=== PATIENT | female | born 1980 | race American Indian/Alaskan Native ===

== ENCOUNTER 2017-08-16 13:53 | Inpatient (IN) | payer MEDICAID ==
[2017-08-16 16:46] LABS: BASO % 0.8 % (0.0-2.0); EOS % 0.5 % (0.0-4.0); LYMPH # 2.8 K/uL (1.0-4.3); LYMPH % 50.6 % (20.0-40.0); MEAN CELL VOLUME 91.6 fl (81.0-99.0); MEAN CORPUSCULAR HEMOGLOBIN 29.7 pg (27.0-31.0); MEAN CORPUSCULAR HGB CONC 32.4 g/dL (33.0-37.0); MEAN PLATELET VOLUME 8.8 fl (7.2-11.7); MONO # 0.5 K/uL (0.0-0.8); MONO % 9.5 % (0.0-10.0); NEUT # 2.2 K/uL (1.8-7.0); NEUT % 38.6 % (50.0-75.0); NRBC % 0.1 % (0.0-0.0); RBC 5.39 Mil/uL (3.80-5.20); RED CELL DISTRIBUTION WIDTH 15.5 % (11.5-14.5); WHITE BLOOD COUNT 5.6 K/uL (4.8-10.8)
[2017-08-16 17:04] LABS: ALBUMIN 3.8 g/dL (3.5-5.0); ALT/SGPT 32 U/L (9-52); AST/SGOT 24 U/L (14-36); BLOOD UREA NITROGEN 10 mg/dl (7-17); CALCIUM 9.5 mg/dL (8.4-10.2); GFR AFRICAN-AMERICAN > 60; GFR NON-AFRICAN AMERICAN > 60
--- NOTE | 2017-08-16 17:28 | ED PDOC ---
Lower Extremity Pain/Injury Time Seen by Provider: 08/16/17 14:20 Chief Complaint (Nursing): Weakness/Neurological Deficit Chief Complaint (Provider): Lower extremity weakness History Per: Patient History/Exam Limitations: no limitations Onset/Duration Of Symptoms: Days (x4 months since April) Current Symptoms Are (Timing): Still Present Additional Complaint(s): Rubi Armenta is a 36 year old female, with no significant past medical history, who presents to the emergency department complaining of a worsening weakness to the lower extremities and inability to ambulate onset for x4 months since April. Patient was sent here by her PMD for admission and arrangements for rehab center. Patient reports she was evaluated at both [place] and [facility] for the same complaint. Patient states she had MRIs of entire spine and head as well as CTs of head and spine that were unremarkable; she also reports that there were no findings in her blood work as well. She states insurance won't approve her rehab placement until a diagnosis is made. LMP: 05/21/2017. She denies any other medical complaints. PMD: Dr. Garcia Past Medical History Reviewed: Historical Data, Nursing Documentation, Vital Signs Vital Signs: Last Vital Signs Temp 98.0 F 08/16/17 14:00 Pulse 106 H 08/16/17 14:00 Resp 16 08/16/17 14:00 BP 155/105 H 08/16/17 14:00 Pulse Ox 97 08/16/17 14:00 - Medical History PMH: No Chronic Diseases Denies: Chronic Kidney Disease - Surgical History Surgical History: No Surg Hx - Family History Family History: States: Unknown Family Hx - Social History Current smoker - smoking cessation education provided: No Alcohol: Social Drugs: Denies - Home Medications Home Medications: Ambulatory Orders Medication Instructions Recorded No Known Home Med 08/16/17 - Allergies Allergies/Adverse Reactions: Allergies Allergy/AdvReac Type Severity Reaction Status Date / Time amoxicillin Allergy SHORTNESS Verified 05/02/17 19:47 OF BREATH Review of Systems ROS Statement: Except As Marked, All Systems Reviewed And Found Negative Neurological: Positive for: Weakness (lower extremities) Physical Exam - Reviewed Nursing Documentation Reviewed: Yes Vital Signs Reviewed: Yes - Physical Exam Comments: GENERAL APPEARANCE: Patient is awake, alert, oriented x 3, in no acute distress. SKIN: Warm, dry; (-) cyanosis. EYES: (-) conjunctival pallor, (-) scleral icterus. ENMT: Mucous membranes moist. NECK: Supple, FROM (-) tenderness, (-) stiffness, (-) lymphadenopathy. CHEST AND RESPIRATORY: CTA b/l; (-) rales, (-) rhonchi, (-) wheezes; breath sounds equal bilaterally. HEART AND CARDIOVASCULAR: (-) irregularity; (-) murmur, (-) gallop. ABDOMEN AND GI: Soft; (-) distention. Bowel sounds active x4; (-) tenderness. ( -) guarding, (-) rebound, (-) palpable masses, (-) CVA tenderness. BACK: (+) b/l paralumbar tenderness, (+) mild spasm, (-) direct bony tenderness , (-) deformity, (-) midline tenderness. EXTREMITIES: 5/5 strength of lower extremities. Full ROM of b/l lower extremities; (-) tenderness, (-) effusion, (-) deformity, (-) edema, (+) distal pulses. NEURO AND PSYCH: Mental status as above; (-) focal findings. - Laboratory Results Result Diagrams: 08/16/17 16:39 08/16/17 16:39 Urine POC: Negative Urine dip results: Positive for: Leukocyte Esterase (trace), Bilirubin (small). Negative for: Blood, Nitrate, Glucose - ECG ECG Rhythm: Positive for: Sinus Rhythm Interpretation Of ECG: No ST elevation, no ectopy, QTc 452. Rate: 90 O2 Sat by Pulse Oximetry: 97 (RA) Pulse Ox Interpretation: Normal Medical Decision Making Medical Decision Making: Initial Impression: worsening weakness, inability to ambulate Initial Plan: --EKG --CMP --Urine drug screen -- test --CBC w/ differential --Chest portable [RAD] --Chest two views (PA/LAT) [RAD] --Zofran ODT 8 mg PO --Blood culture --Urinalysis --Reevaluation 1699 -Spoke with Dr. Garcia, who states she wants the patient to be admitted. Patient is pending an outpatient muscle biopsy and EMG study, however reporting worsening symptoms which prompted admission. -Upreg negative. -UDip reviewed. U/A ordered. -Labs reviewed and grossly unremarkable. -EKG reviewed. CXR reviewed, radiology report follows Monotype Mechanic : Daron Acosta MD Report Date : 08/16/2017 17:51:52 HISTORY: admission COMPARISON: No prior. FINDINGS: LUNGS: No active pulmonary disease. PLEURA: No significant pleural effusion identified, no pneumothorax apparent. CARDIOVASCULAR: Normal. OSSEOUS STRUCTURES: No significant abnormalities. VISUALIZED UPPER ABDOMEN: Normal. OTHER FINDINGS: None. IMPRESSION: No active disease. 18:00 -Spoke with Dr. Alberto who is agreeable for admission. Arrangements made for observation to med-surg. Repeat HR: 66. Repeat BP: 113/76. VSS. -Diagnostic results d/w the patient in great detail. Diagnosis of weakness, ataxia d/w the patient. Based on history, exam and diagnostic results, plan will be for inpatient admission / observation. Scribe Attestation: Documented by Fran Reid, acting as a scribe for Petty Goodson PA-C Provider Scribe Attestation: All medical record entries made by the Scribe were at my direction and personally dictated by me. I have reviewed the chart and agree that the record accurately reflects my personal performance of the history, physical exam, medical decision making, and the department course for this patient. I have also personally directed, reviewed, and agree with the discharge instructions and disposition. Disposition - Clinical Impression Clinical Impression: Weakness of both lower extremities, Back pain, acute - Patient ED Disposition Is Patient to be Admitted: Yes - Disposition Disposition Time: 16:08 Condition: STABLE - Pt Status Changed To: Hospital Disposition Of: Inpatient - Admit Certification Admit to Inpatient:: After my assessment, the patient will require hospitalization for at least two midnights. This is because of the severity of symptoms shown, intensity of services needed, and/or the medical risk in this patient being treated as an outpatient. - POA Present On Arrival: None Results - Lab Results Lab Results: 08/16/17 08/16/17 16:39 16:39 WBC 5.6 RBC 5.39 H Hgb 16.0 Hct 49.4 H MCV 91.6 MCH 29.7 MCHC 32.4 L RDW 15.5 H Plt Count 288 MPV 8.8 Neut % (Auto) 38.6 L Lymph % (Auto) 50.6 H Mineral % (Auto) 9.5 Eos % (Auto) 0.5 Baso % (Auto) 0.8 Neut # (Auto) 2.2 Lymph # (Auto) 2.8 Mineral # (Auto) 0.5 Eos # (Auto) 0.0 Baso # (Auto) 0.0 Sodium 141 Potassium 3.7 Chloride 99 Carbon Dioxide 26 Anion Gap 20 BUN 10 Creatinine 0.5 L Est GFR ( Amer) > 60 Est GFR (Non-Af Amer) > 60 Random Glucose 96 Calcium 9.5 Total Bilirubin 0.5 AST 24 ALT 32 Alkaline Phosphatase 66 Total Protein 7.6 Albumin 3.8 Globulin 3.8 Albumin/Globulin Ratio 1.0
--- NOTE | 2017-08-16 17:53 | RAD ---
HISTORY: admission COMPARISON: No prior. FINDINGS: LUNGS: No active pulmonary disease. PLEURA: No significant pleural effusion identified, no pneumothorax apparent. CARDIOVASCULAR: Normal. OSSEOUS STRUCTURES: No significant abnormalities. VISUALIZED UPPER ABDOMEN: Normal. OTHER FINDINGS: None. IMPRESSION: No active disease.
[2017-08-16] MEDS: Sodium Chloride 0.9% 1,000 ML IV SCH (20:00)
[2017-08-17] MEDS: Enoxaparin 40 mg Syringe SC SCH (08:58)
[2017-08-17] MEDS: Sodium Chloride 0.9% 1,000 ML IV SCH (15:25)
--- NOTE | 2017-08-17 18:13 | CARD ---
APPROVED REPORT EKG Measurement Heart [id number] MS [id number] <Conclusion> Normal sinus rhythm Normal ECG
--- NOTE | 2017-08-17 21:45 | CP.PCM.HP ---
History of Present Illness - History of Present Illness History of Present Illness: CC: Unable to Ambulate and Transfer History of Preset Illness: A 36yoF who has been C/O Unable to walk and pain to the upper and lower extremities. Patient wa worked up extensively in [facility], and [facility] since but unable to ambulate. Patient was sent by her PMD to the ER for further work up and placement to Acute Rehab. Denies Fever, numbness, Tingling. Neurology evaluated the patient at [facility] and [facility], and was seen by psych at [facility]. She states had a short period of PT/OT at [facility] and was discharged Home. Present on Admission - Present on Admission Any Indicators Present on Admission: No Review of Systems - Review of Systems All systems: reviewed and no additional remarkable complaints except Past Patient History - Infectious Disease Hx of Infectious Diseases: None - Past Medical History & Family History Past Medical History?: Yes Past Family History: Reviewed and not pertinent () - Past Social History Alcohol: Social Drugs: Denies - CARDIAC Hx Cardiac Disorders: No - PULMONARY Hx Respiratory Disorders: No - NEUROLOGICAL Hx Neurological Disorder: No Other/Comment: "nerve pain last year" - RENAL Hx Chronic Kidney Disease: No - ENDOCRINE/METABOLIC Hx Endocrine Disorders: No - HEMATOLOGICAL/ONCOLOGICAL Hx Blood Disorders: No - INTEGUMENTARY Hx Dermatological Problems: No - MUSCULOSKELETAL/RHEUMATOLOGICAL Hx Musculoskeletal Disorders: Yes Hx Back Pain: Yes Hx Falls: Yes Hx Spinal Stenosis: Yes - GASTROINTESTINAL Hx Gastrointestinal Disorders: No - GENITOURINARY/GYNECOLOGICAL Hx Genitourinary Disorders: No - PSYCHIATRIC Hx Psychophysiologic Disorder: No Hx Substance Use: No - SURGICAL HISTORY Hx Surgeries: No - ANESTHESIA Hx Anesthesia: No Meds Allergies/Adverse Reactions: Allergies Allergy/AdvReac Type Severity Reaction Status Date / Time amoxicillin Allergy SHORTNESS Verified 05/02/17 19:47 OF BREATH Physical Exam - Constitutional Appears: Well, No Acute Distress - Head Exam Head Exam: ATRAUMATIC, NORMAL INSPECTION, NORMOCEPHALIC - Eye Exam Eye Exam: EOMI, Normal appearance, PERRL Pupil Exam: NORMAL ACCOMODATION, PERRL - ENT Exam ENT Exam: Mucous Membranes Moist, Normal Exam - Neck Exam Neck exam: Positive for: Full Rom, Normal Inspection - Respiratory Exam Respiratory Exam: Clear to Auscultation Bilateral, NORMAL BREATHING PATTERN - Cardiovascular Exam Cardiovascular Exam: REGULAR RHYTHM, +S1, +S2 - GI/Abdominal Exam GI & Abdominal Exam: Normal Bowel Sounds, Soft. absent: Tenderness - Rectal Exam Rectal Exam: NORMAL INSPECTION - Extremities Exam Extremities exam: Positive for: full ROM, normal capillary refill, normal inspection, pedal pulses present. Negative for: joint swelling, pedal edema, tenderness - Back Exam Back exam: NORMAL INSPECTION - Neurological Exam Neurological exam: Alert, CN II-XII Intact, Oriented x3, Reflexes Normal Additional comments: Finger to Nose was abnormal to the left. Wong to Heel test were norml B/L LE. - Psychiatric Exam Psychiatric exam: Normal Affect, Normal Mood - Skin Skin Exam: Dry, Intact, Normal Color, Warm Results - Vital Signs Recent Vital Signs: Last Vital Signs Temp 98.2 F 08/17/17 17:00 Pulse 93 H 08/17/17 17:00 Resp 18 08/17/17 17:00 BP 105/73 08/17/17 17:00 Pulse Ox 100 08/17/17 17:00 - Labs Result Diagrams: 08/16/17 16:39 08/16/17 16:39 Labs: Laboratory Results - last 24 hr 08/17/17 12:30 Total Creatine Kinase 237 H TSH 3rd Generation 0.66 - EKG Data EKG shows normal: Sinus rhythm, Intervals, QRS complexes, ST-T waves Rate: Normal - Imaging and Cardiology MRI - head Additional comment: with/Without Contrast: IMPRESSION: Limited motion degraded study. No evidence of acute intracranial hemorrhage or infarct. No enhancing parenchymal nor extra-axial masses. No evidence of unusual meningeal enhancement. Assessment & Plan (1) Unable to ambulate Assessment and Plan: ?Etiolog Vs Somatization Neurology Consulted Aldolase and CPK Level Physical and Occupational Therapy Evaluation and treatment Will do LP if Neurologist Agree DVT Prphylaxis Pain Medication PRN SW Status: Acute Priority: Medium
[2017-08-18] MEDS ORDERED: Gadodiamide 287 MG/ML VIAL (15ML) IV ONE (07:22)
[2017-08-18] MEDS: Enoxaparin 40 mg Syringe SC SCH (10:12)
--- NOTE | 2017-08-18 12:08 | MRI ---
PROCEDURE: MRI of the brain 08/18/2017 HISTORY: Rule out stroke COMPARISON: No prior TECHNIQUE: Multiplanar, multisequence MR images of the brain were obtained with and without intravenous contrast enhancement. 20 cc Omniscan contrast material injected for this examination. Note that this examination is limited by motion artifact. FINDINGS: HEMORRHAGE: No acute parenchymal, subarachnoid or extra-axial hemorrhage. No evidence hemosiderin deposition identified on gradient echo weighted sequence DWI: No evidence of an acute or early subacute infarction cantu seen on diffusion imaging. BRAIN PARENCHYMA: No enhancing parenchymal nor extra-axial masses or collections seen on this noncontrast study. No evidence of unusual meningeal enhancement. . No evidence of a significant chronic microvascular ischemic disease. ENHANCEMENT: No abnormal intracranial enhancement as above. VENTRICLES: No obstructive hydrocephalus. CRANIUM: No acute calvarial abnormality so far as can be seen. ORBITS: Orbits and contents unremarkable. PARANASAL SINUSES/MASTOIDS: The frontal sinuses are underpneumatized/ hypoplastic. Remaining visualized paranasal sinuses well-developed and currently well-aerated. No fluid levels seen to suggest acute sinusitis. No significant mucoperiosteal inflammatory changes. VASCULAR SYSTEM: Visualized major vascular flow voids at skull base patent. OTHER FINDINGS: None . IMPRESSION: Limited motion degraded study. No evidence of acute intracranial hemorrhage or infarct. No enhancing parenchymal nor extra-axial masses. No evidence of unusual meningeal enhancement.
[2017-08-18 18:17] LABS: ALDOLASE 8.9 U/L (<=8.1)
--- NOTE | 2017-08-18 22:16 | CP.PCM.PN ---
Subjective - Date & Time of Evaluation Date of Evaluation: 08/18/17 Time of Evaluation: 16:35 Objective - Vital Signs/Intake and Output Vital Signs (last 24 hours): Temp Pulse Resp BP Pulse Ox 98 F 94 H 20 109/73 100 08/18/17 17:00 08/18/17 17:00 08/18/17 17:00 08/18/17 17:00 08/18/17 17:00 - Medications Medications: Current Medications Enoxaparin Sodium (Lovenox) 40 mg SC DAILY ALVIN PRN Reason: Protocol Last Admin: 08/18/17 10:12 Dose: 40 mg Ketorolac Tromethamine (Toradol) 15 mg IVP Q6 PRN PRN Reason: Pain, moderate (4-7) Last Admin: 08/17/17 23:57 Dose: 15 mg Ondansetron HCl (Zofran Inj) 4 mg IVP Q6 PRN PRN Reason: Nausea/Vomiting - Labs Labs: 08/16/17 16:39 08/16/17 16:39
[2017-08-19] MEDS: Enoxaparin 40 mg Syringe SC SCH (08:27)
--- NOTE | 2017-08-19 17:28 | CP.PCM.PN ---
Subjective - Date & Time of Evaluation Date of Evaluation: 08/19/17 Time of Evaluation: 11:15 Objective - Vital Signs/Intake and Output Vital Signs (last 24 hours): Temp Pulse Resp BP Pulse Ox 97.8 F 87 20 105/73 99 08/19/17 15:39 08/19/17 15:39 08/19/17 15:39 08/19/17 15:39 08/19/17 15:39 - Medications Medications: Current Medications Enoxaparin Sodium (Lovenox) 40 mg SC DAILY ALVIN PRN Reason: Protocol Last Admin: 08/19/17 08:27 Dose: 40 mg Ketorolac Tromethamine (Toradol) 15 mg IVP Q6 PRN PRN Reason: Pain, moderate (4-7) Last Admin: 08/18/17 23:41 Dose: 15 mg Ondansetron HCl (Zofran Inj) 4 mg IVP Q6 PRN PRN Reason: Nausea/Vomiting - Labs Labs: 08/16/17 16:39 08/16/17 16:39
--- NOTE | 2017-08-20 09:02 | CP.PCM.PCO ---
Assessment/Plan - Assessment/Plan Assessment (Free Text): Spoke to Dr. Lindsey, neurologist who saw pt, states she did not request lumbar puncture and that the patient does not need a lumbar puncture. Also states the patient does not have any neurologic symptoms and that the patient is cleared from neurology stand point. Suggesting a psychiatric eval as well. Discussed with Dr. Alberto, LP order d/c'd, psych consult called.
[2017-08-20 09:33] LABS: INR 1.1 (0.9-1.2); PARTIAL THROMBOPLASTIN TIME 35.1 Seconds (25.6-37.1)
[2017-08-20] MEDS: Enoxaparin 40 mg Syringe SC SCH (09:49)
--- NOTE | 2017-08-20 14:53 | CP.PCM.CON ---
History of Present Illness - History of Present Illness History of Present Illness: A 36yoF who has been C/O Unable to walk and pain to the upper and lower extremities. Patient wa worked [place] extensively [place] [facility], and [facility] since but unable to ambulate. Patient was sent by her PMD to the ER for further work up and placement to Acute Rehab. pt after neurological work up was medically cleared,psychiatry consult requested to rule out conversion disorder pt on evaluation, calm cooperative, denied any previous history of psychiatric treatment or follow up, denied any current symptoms of depression, no reported changes in sleep or appetite, denied manic or psychotic symptoms, denied substance abuse pt reported only feeling sad because of her limited ability to move her lower extremities. pt denied any current suicidal or homicidal ideations Past Patient History - Infectious Disease Hx of Infectious Diseases: None - Past Medical History & Family History Past Medical History?: Yes Past Family History: Reviewed and not pertinent () - Past Social History Alcohol: Social Drugs: Denies - CARDIAC Hx Cardiac Disorders: No - PULMONARY Hx Respiratory Disorders: No - NEUROLOGICAL Hx Neurological Disorder: No Other/Comment: "nerve pain last year" - RENAL Hx Chronic Kidney Disease: No - ENDOCRINE/METABOLIC Hx Endocrine Disorders: No - HEMATOLOGICAL/ONCOLOGICAL Hx Blood Disorders: No - INTEGUMENTARY Hx Dermatological Problems: No - MUSCULOSKELETAL/RHEUMATOLOGICAL Hx Musculoskeletal Disorders: Yes Hx Back Pain: Yes Hx Falls: Yes Hx Spinal Stenosis: Yes - GASTROINTESTINAL Hx Gastrointestinal Disorders: No - GENITOURINARY/GYNECOLOGICAL Hx Genitourinary Disorders: No - PSYCHIATRIC Hx Psychophysiologic Disorder: No Hx Substance Use: No - SURGICAL HISTORY Hx Surgeries: No - ANESTHESIA Hx Anesthesia: No Meds Allergies/Adverse Reactions: Allergies Allergy/AdvReac Type Severity Reaction Status Date / Time amoxicillin Allergy SHORTNESS Verified 05/02/17 19:47 OF BREATH - Medications Medications: Current Medications Acetaminophen (Tylenol 325mg Tab) 650 mg PO Q6 PRN PRN Reason: Pain, Mild (1-3) Last Admin: 08/20/17 11:30 Dose: 650 mg Acetaminophen/Codeine Phosphate (Tylenol/Codeine 300 Mg/30 Mg) 1 tab PO Q6 PRN PRN Reason: Pain, moderate (4-7) Enoxaparin Sodium (Lovenox) 40 mg SC DAILY ALVIN PRN Reason: Protocol Last Admin: 08/20/17 09:49 Dose: 40 mg Ondansetron HCl (Zofran Odt) 4 mg PO Q6 PRN PRN Reason: Nausea/Vomiting Physical Exam - Psychiatric Exam Additional comments: pt seen in bed, calm cooperative good eye contact, speech normal though form coherent , denied any current perceptual disturbances, non elicited alert awake oriented x3, fair insight and judgment Results - Vital Signs Recent Vital Signs: Last Vital Signs Temp 98.2 F 08/20/17 08:03 Pulse 106 H 08/20/17 13:30 Resp 18 08/20/17 08:03 BP 122/84 08/20/17 08:03 Pulse Ox 100 08/20/17 13:30 - Labs Result Diagrams: 08/16/17 16:39 08/16/17 16:39 Labs: Laboratory Results - last 24 hr 08/20/17 08:45 PT 12.0 INR 1.1 APTT 35.1 Assessment & Plan - Assessment and Plan (Free Text) Assessment: no psychiatric diagnosis or condition on axis I Plan: pt at current metal status not danger to self or others, no psychiatric symptoms or signs elicited pt psychiatricaly cleared for discharge upon medical clearence
[2017-08-20] MEDS ORDERED: Gadodiamide 287 MG/ML VIAL (15ML) IV ONE (16:04)
--- NOTE | 2017-08-20 20:19 | MRI ---
EXAM: MR Thoracic Spine Without and With Intravenous Contrast EXAM DATE/TIME: 08/20/2017 12:49 PM CLINICAL HISTORY: 36 years old, female; Signs and symptoms; Other: Ataxia TECHNIQUE: Magnetic resonance images of the thoracic spine without and with intravenous contrast in multiple planes. CONTRAST: 20 mL of OMNISCAN administered intravenously. COMPARISON: No relevant prior studies available. FINDINGS: LIMITATIONS: Mild streak/motion artifact. 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 No evidence of significant vertebral subluxation. No evidence of acute vertebral compression fractures. MARROW: No evidence of significant vertebral marrow signal abnormality. DISCS/SPINAL CANAL/NEURAL FORAMINA: No evidence of significant spinal canal stenosis. Intervertebral disc heights and signal appear preserved. SPINAL CORD: No evidence of significant signal abnormality in the spinal cord. No abnormal enhancement. SOFT TISSUES: No acute abnormality identified. GALLBLADDER AND BILE DUCTS: Gallstones incidentally noted . IMPRESSION: - No evidence of spinal canal stenosis or other significant abnormality. - See above for remaining findings.
--- NOTE | 2017-08-20 20:32 | MRI ---
EXAM: MR Lumbar Spine Without and With Intravenous Contrast EXAM DATE/TIME: 08/20/2017 12:49 PM CLINICAL HISTORY: 36 years old, female; Signs and symptoms; Other: Ataxia TECHNIQUE: Magnetic resonance images of the lumbar spine without and with intravenous contrast in multiple planes. CONTRAST: 20 mL of OMNISCAN administered intravenously. COMPARISON: No relevant prior studies available. FINDINGS: LIMITATIONS: Mild streak/motion artifact. VERTEBRAE: No evidence of acute vertebral compression fractures. No evidence of significant vertebral subluxation. MARROW: No evidence of significant vertebral marrow signal abnormality. SPINAL CORD: No evidence of significant signal abnormality in the conus medullaris, which terminates at the L1 level. No abnormal enhancement. SOFT TISSUES: Small amount of edema in the subcutaneous fat posteriorly, which could represent dependent edema. DISCS/SPINAL CANAL/NEURAL FORAMINA: L1-L2: Mild facet joint degenerative changes. No evidence of significant spinal canal stenosis. L2-L3: Mild circumferential disc bulge. Moderate facet joint degenerative changes. No evidence of significant spinal canal stenosis. L3-L4: Mild circumferential disc bulge. Moderate facet joint degenerative changes. No evidence of significant spinal canal stenosis. L4-L5: Moderate facet joint degenerative changes. There is associated mild bilateral neural foraminal narrowing. No evidence of significant spinal canal stenosis. L5-S1: Moderate facet joint degenerative changes. There is associated mild bilateral neural foraminal narrowing. No evidence of significant spinal canal stenosis. IMPRESSION: - No evidence of significant spinal canal stenosis. - Multilevel facet joint degenerative changes, causing mild neural foraminal narrowing. - See above for remaining findings.
--- NOTE | 2017-08-20 20:55 | MRI ---
EXAM: MR Cervical Spine Without and With Intravenous Contrast EXAM DATE/TIME: 08/20/2017 12:49 PM CLINICAL HISTORY: 36 years old, female; Signs and symptoms; Other: Ataxia TECHNIQUE: Magnetic resonance images of the cervical spine without and with intravenous contrast in multiple planes. CONTRAST: 20 mL of OMNISCAN administered intravenously. COMPARISON: No relevant prior studies available. FINDINGS: VERTEBRAE: No evidence of acute vertebral compression fractures. No evidence of significant vertebral subluxation. MARROW: No evidence of significant vertebral marrow signal abnormality. SPINAL CORD: No evidence of significant signal abnormality in the spinal cord. No abnormal enhancement. SOFT TISSUES: No acute abnormality identified DISCS/SPINAL CANAL/NEURAL FORAMINA: C2-C3: Unremarkable. No stenosis. C3-C4: Focal central disc bulge. This effaces the ventral thecal sac. No evidence of significant spinal canal stenosis. C4-C5: Small posterior disc bulge. This effaces the ventral thecal sac, and causes mild spinal canal stenosis. C5-C6: Suspect a focal disc herniation, located in the midline . This contacts the spinal cord anteriorly and indents it. It is causing spinal canal stenosis. C6-C7: Unremarkable. C7-T1: Unremarkable. IMPRESSION: - Findings suspicious for a focal disc herniation at C5-6, which contacts the ventral spinal cord and causes spinal canal stenosis. - See above for remaining findings.
--- NOTE | 2017-08-20 22:52 | CP.PCM.PN ---
Subjective - Date & Time of Evaluation Date of Evaluation: 08/20/17 Time of Evaluation: 13:30 Objective - Vital Signs/Intake and Output Vital Signs (last 24 hours): Temp Pulse Resp BP Pulse Ox 97.6 F 98 H 20 115/80 96 08/20/17 15:41 08/20/17 15:41 08/20/17 15:41 08/20/17 15:41 08/20/17 15:41 - Medications Medications: Current Medications Acetaminophen (Tylenol 325mg Tab) 650 mg PO Q6 PRN PRN Reason: Pain, Mild (1-3) Last Admin: 08/20/17 11:30 Dose: 650 mg Acetaminophen/Codeine Phosphate (Tylenol/Codeine 300 Mg/30 Mg) 1 tab PO Q6 PRN PRN Reason: Pain, moderate (4-7) Enoxaparin Sodium (Lovenox) 40 mg SC DAILY ALVIN PRN Reason: Protocol Last Admin: 08/20/17 09:49 Dose: 40 mg Ondansetron HCl (Zofran Odt) 4 mg PO Q6 PRN PRN Reason: Nausea/Vomiting - Labs Labs: 08/16/17 16:39 08/16/17 16:39 PT 12.0 Seconds (9.8-13.1) 08/20/17 08:45 INR 1.1 (0.9-1.2) 08/20/17 08:45 APTT 35.1 Seconds (25.6-37.1) 08/20/17 08:45 Assessment and Plan (1) Unable to ambulate Status: Acute
[2017-08-21] MEDS: Acetaminophen-Codeine 300/30 mg Tab PO PRN (04:26)
[2017-08-21] MEDS: Enoxaparin 40 mg Syringe SC SCH (08:30)
[2017-08-21 13:30] LABS: MEAN CORPUSCULAR HEMOGLOBIN 29.8 pg (27.0-31.0); MEAN CORPUSCULAR HGB CONC 32.7 g/dL (33.0-37.0); RBC 4.58 Mil/uL (3.80-5.20); RED CELL DISTRIBUTION WIDTH 15.4 % (11.5-14.5); WHITE BLOOD COUNT 4.8 K/uL (4.8-10.8)
[2017-08-21 13:37] LABS: BLOOD UREA NITROGEN 8 mg/dl (7-17); CALCIUM 8.9 mg/dL (8.4-10.2); GFR AFRICAN-AMERICAN > 60; GFR NON-AFRICAN AMERICAN > 60
[2017-08-21 13:39] LABS: HEMOGLOBIN 13.6 g/dL (12.0-16.0)
[2017-08-21] MEDS ORDERED: Potassium Chloride 20 mEq ER Tab PO ONE (15:05)
--- NOTE | 2017-08-21 16:01 | CP.PCM.CON ---
History of Present Illness - History of Present Illness History of Present Illness: Neurology Consult Note: Ms. Armenta is a 36-year-old woman who is currently admitted for generalized weakness that has been ongoing since 2016 and was exacerbated in April since she had a fall with injury to the back. She has been worked up before, but did not have cervical spine imaging. During this admission, an MRI of the cervical spine was done and showed herniation of C5/6 with indentation of the spinal cord. Neurology was consulted to assist with the management and care. Review of Systems - Review of Systems All systems: reviewed and no additional remarkable complaints except Past Patient History - Infectious Disease Hx of Infectious Diseases: None - Past Medical History & Family History Past Medical History?: Yes Past Family History: Reviewed and not pertinent () - Past Social History Alcohol: Social Drugs: Denies - CARDIAC Hx Cardiac Disorders: No - PULMONARY Hx Respiratory Disorders: No - NEUROLOGICAL Hx Neurological Disorder: No Other/Comment: "nerve pain last year" - RENAL Hx Chronic Kidney Disease: No - ENDOCRINE/METABOLIC Hx Endocrine Disorders: No - HEMATOLOGICAL/ONCOLOGICAL Hx Blood Disorders: No - INTEGUMENTARY Hx Dermatological Problems: No - MUSCULOSKELETAL/RHEUMATOLOGICAL Hx Musculoskeletal Disorders: Yes Hx Back Pain: Yes Hx Falls: Yes Hx Spinal Stenosis: Yes - GASTROINTESTINAL Hx Gastrointestinal Disorders: No - GENITOURINARY/GYNECOLOGICAL Hx Genitourinary Disorders: No - PSYCHIATRIC Hx Psychophysiologic Disorder: No Hx Substance Use: No - SURGICAL HISTORY Hx Surgeries: No - ANESTHESIA Hx Anesthesia: No Meds Allergies/Adverse Reactions: Allergies Allergy/AdvReac Type Severity Reaction Status Date / Time amoxicillin Allergy SHORTNESS Verified 05/02/17 19:47 OF BREATH - Medications Medications: Current Medications Acetaminophen (Tylenol 325mg Tab) 650 mg PO Q6 PRN PRN Reason: Pain, Mild (1-3) Last Admin: 08/20/17 11:30 Dose: 650 mg Acetaminophen/Codeine Phosphate (Tylenol/Codeine 300 Mg/30 Mg) 1 tab PO Q6 PRN PRN Reason: Pain, moderate (4-7) Last Admin: 08/21/17 04:26 Dose: 1 tab Enoxaparin Sodium (Lovenox) 40 mg SC DAILY ALVIN PRN Reason: Protocol Last Admin: 08/21/17 08:30 Dose: 40 mg Ondansetron HCl (Zofran Odt) 4 mg PO Q6 PRN PRN Reason: Nausea/Vomiting Last Admin: 08/21/17 15:51 Dose: 4 mg Physical Exam - Constitutional Appears: Well - Head Exam Head Exam: ATRAUMATIC, NORMAL INSPECTION, NORMOCEPHALIC - Eye Exam Eye Exam: EOMI, Normal appearance, PERRL - ENT Exam ENT Exam: Mucous Membranes Moist, Normal Exam - Neck Exam Neck exam: Positive for: Normal Inspection - Respiratory Exam Respiratory Exam: Clear to Auscultation Bilateral, NORMAL BREATHING PATTERN - Cardiovascular Exam Cardiovascular Exam: REGULAR RHYTHM - Rectal Exam Rectal Exam: Deferred - Neurological Exam Neurological exam: Abnormal Gait, Alert, CN II-XII Intact, Oriented x3, Reflexes Normal Additional comments: Right upper extremity is weaker than left with 4/5 strength proximally and 3/5 strength distally. Left upper extremity is 4/5 proximally and distally. Weaker on extension than flexion. C5/6 reflexes were brisk. Bilateral hip flexors are weak. Decreased position sense, vibration sense and light touch to both lower extremities. Requires a walker for ambulation and needs assistance to stand from a seated position. Results - Vital Signs Recent Vital Signs: Last Vital Signs Temp 97.4 F L 08/21/17 08:05 Pulse 101 H 08/21/17 08:05 Resp 19 08/21/17 08:05 BP 108/73 08/21/17 08:05 Pulse Ox 98 08/21/17 08:05 - Labs Result Diagrams: 08/21/17 13:22 08/21/17 13:22 Labs: Laboratory Results - last 24 hr 08/21/17 08/21/17 13:22 13:22 WBC 4.8 RBC 4.58 Hgb 13.6 D Hct 41.7 MCV 91.0 MCH 29.8 MCHC 32.7 L RDW 15.4 H Plt Count 232 Sodium 141 Potassium 3.4 L Chloride 102 Carbon Dioxide 27 Anion Gap 15 BUN 8 Creatinine 0.5 L Est GFR ( Amer) > 60 Est GFR (Non-Af Amer) > 60 Random Glucose 105 Calcium 8.9 Vitamin B12 349 Assessment & Plan (1) Cervical disc herniation Assessment and Plan: This is likely the cause of the patient's progressive weakness. There does not appear to be a significant amount of edema, therefor steroids may not be useful at this time. I recommend spinal/neurosurgical evaluation for possible treatment. Neurology will follow-up to manage pain and paresthesias, but further weakness may be prevented with surgery if this is decided by spinal surgeon. Thank you. Status: Acute Priority: High
--- NOTE | 2017-08-21 16:36 | CP.PCM.CON ---
History of Present Illness - History of Present Illness History of Present Illness: SPINE CONSULT Pt seen and examined. Full consult dictated. Would continue PT for now as pt clinically better than she was in April and appearance of HNP not as large. Past Patient History - Infectious Disease Hx of Infectious Diseases: None - Past Medical History & Family History Past Medical History?: Yes Past Family History: Reviewed and not pertinent () - Past Social History Alcohol: Social Drugs: Denies - CARDIAC Hx Cardiac Disorders: No - PULMONARY Hx Respiratory Disorders: No - NEUROLOGICAL Hx Neurological Disorder: No Other/Comment: "nerve pain last year" - RENAL Hx Chronic Kidney Disease: No - ENDOCRINE/METABOLIC Hx Endocrine Disorders: No - HEMATOLOGICAL/ONCOLOGICAL Hx Blood Disorders: No - INTEGUMENTARY Hx Dermatological Problems: No - MUSCULOSKELETAL/RHEUMATOLOGICAL Hx Musculoskeletal Disorders: Yes Hx Back Pain: Yes Hx Falls: Yes Hx Spinal Stenosis: Yes - GASTROINTESTINAL Hx Gastrointestinal Disorders: No - GENITOURINARY/GYNECOLOGICAL Hx Genitourinary Disorders: No - PSYCHIATRIC Hx Psychophysiologic Disorder: No Hx Substance Use: No - SURGICAL HISTORY Hx Surgeries: No - ANESTHESIA Hx Anesthesia: No Meds Allergies/Adverse Reactions: Allergies Allergy/AdvReac Type Severity Reaction Status Date / Time amoxicillin Allergy SHORTNESS Verified 05/02/17 19:47 OF BREATH - Medications Medications: Current Medications Acetaminophen (Tylenol 325mg Tab) 650 mg PO Q6 PRN PRN Reason: Pain, Mild (1-3) Last Admin: 08/20/17 11:30 Dose: 650 mg Acetaminophen/Codeine Phosphate (Tylenol/Codeine 300 Mg/30 Mg) 1 tab PO Q6 PRN PRN Reason: Pain, moderate (4-7) Last Admin: 08/21/17 04:26 Dose: 1 tab Enoxaparin Sodium (Lovenox) 40 mg SC DAILY ALVIN PRN Reason: Protocol Last Admin: 08/21/17 08:30 Dose: 40 mg Ondansetron HCl (Zofran Odt) 4 mg PO Q6 PRN PRN Reason: Nausea/Vomiting Last Admin: 08/21/17 15:51 Dose: 4 mg Results - Vital Signs Recent Vital Signs: Last Vital Signs Temp 98.8 F 08/21/17 16:14 Pulse 100 H 08/21/17 16:14 Resp 20 08/21/17 16:14 BP 123/86 08/21/17 16:14 Pulse Ox 97 08/21/17 16:14 - Labs Result Diagrams: 08/21/17 13:22 08/21/17 13:22 Labs: Laboratory Results - last 24 hr 08/21/17 08/21/17 13:22 13:22 WBC 4.8 RBC 4.58 Hgb 13.6 D Hct 41.7 MCV 91.0 MCH 29.8 MCHC 32.7 L RDW 15.4 H Plt Count 232 Sodium 141 Potassium 3.4 L Chloride 102 Carbon Dioxide 27 Anion Gap 15 BUN 8 Creatinine 0.5 L Est GFR ( Amer) > 60 Est GFR (Non-Af Amer) > 60 Random Glucose 105 Calcium 8.9 Vitamin B12 349
--- NOTE | 2017-08-21 18:55 | CP.PCM.PN ---
Subjective - Date & Time of Evaluation Date of Evaluation: 08/21/17 Time of Evaluation: 14:55 Objective - Vital Signs/Intake and Output Vital Signs (last 24 hours): Temp Pulse Resp BP Pulse Ox 98.8 F 100 H 20 123/86 97 08/21/17 16:14 08/21/17 16:14 08/21/17 16:14 08/21/17 16:14 08/21/17 16:14 - Medications Medications: Current Medications Acetaminophen (Tylenol 325mg Tab) 650 mg PO Q6 PRN PRN Reason: Pain, Mild (1-3) Last Admin: 08/20/17 11:30 Dose: 650 mg Acetaminophen/Codeine Phosphate (Tylenol/Codeine 300 Mg/30 Mg) 1 tab PO Q6 PRN PRN Reason: Pain, moderate (4-7) Last Admin: 08/21/17 04:26 Dose: 1 tab Enoxaparin Sodium (Lovenox) 40 mg SC DAILY ALVIN PRN Reason: Protocol Last Admin: 08/21/17 08:30 Dose: 40 mg Ondansetron HCl (Zofran Odt) 4 mg PO Q6 PRN PRN Reason: Nausea/Vomiting Last Admin: 08/21/17 15:51 Dose: 4 mg - Labs Labs: 08/21/17 13:22 08/21/17 13:22 PT 12.0 Seconds (9.8-13.1) 08/20/17 08:45 INR 1.1 (0.9-1.2) 08/20/17 08:45 APTT 35.1 Seconds (25.6-37.1) 08/20/17 08:45 Assessment and Plan (1) Unable to ambulate Status: Acute
[2017-08-22] MEDS: Acetaminophen-Codeine 300/30 mg Tab PO PRN (01:55)
[2017-08-22] MEDS: Enoxaparin 40 mg Syringe SC SCH (08:59)
[2017-08-22 10:37] LABS: BLOOD UREA NITROGEN 6 mg/dl (7-17); CALCIUM 8.9 mg/dL (8.4-10.2); GFR AFRICAN-AMERICAN > 60; GFR NON-AFRICAN AMERICAN > 60
--- NOTE | 2017-08-22 22:15 | CP.PCM.PN ---
Subjective - Date & Time of Evaluation Date of Evaluation: 08/22/17 Time of Evaluation: 16:20 Objective - Vital Signs/Intake and Output Vital Signs (last 24 hours): Temp Pulse Resp BP Pulse Ox 98.4 F 92 H 20 117/84 97 08/22/17 16:42 08/22/17 16:42 08/22/17 16:42 08/22/17 16:42 08/22/17 16:42 - Medications Medications: Current Medications Acetaminophen (Tylenol 325mg Tab) 650 mg PO Q6 PRN PRN Reason: Pain, Mild (1-3) Last Admin: 08/20/17 11:30 Dose: 650 mg Acetaminophen/Codeine Phosphate (Tylenol/Codeine 300 Mg/30 Mg) 1 tab PO Q6 PRN PRN Reason: Pain, moderate (4-7) Last Admin: 08/22/17 01:55 Dose: 1 tab Enoxaparin Sodium (Lovenox) 40 mg SC DAILY ALVIN PRN Reason: Protocol Last Admin: 08/22/17 08:59 Dose: 40 mg Ondansetron HCl (Zofran Odt) 4 mg PO Q6 PRN PRN Reason: Nausea/Vomiting Last Admin: 08/21/17 15:51 Dose: 4 mg - Labs Labs: 08/21/17 13:22 08/22/17 10:08 PT 12.0 Seconds (9.8-13.1) 08/20/17 08:45 INR 1.1 (0.9-1.2) 08/20/17 08:45 APTT 35.1 Seconds (25.6-37.1) 08/20/17 08:45 Assessment and Plan (1) Unable to ambulate Status: Acute
[2017-08-23] MEDS: Acetaminophen-Codeine 300/30 mg Tab PO PRN (00:59)
--- NOTE | 2017-08-23 08:24 | CON ---
DATE: 08/21/2017 REASON FOR CONSULTATION: Difficulty walking. HISTORY OF PRESENT ILLNESS: The patient is a 36-year-old young lady who states that she had longstanding issues with neck and back pain as far back in 2016. She stated at that time, she had some outpatient physical therapy and things seem to get better. She was told she had some bone spurs and arthritis in her neck and her lower back. She states things were never perfect, but she was getting along until she had a fall on giving of last year and that really seemed to set things off. She was seen at [facility] and reportedly had a workup done which according to her did not really show anything, so she was transferred to a rehab center. Evidently because of her difficulty walking, she was transferred from the rehab, place directly to [facility]. She underwent a cervical spine MRI and was seen by Neurology at that time. Evidently a question of MS was raised, but Ms. Armenta states she was told she did not have that. There was a mention in the progress notes about doing a spinal tap, but she states she never had that done. She states at that time her legs were jumping "all over the place" as she describes it and she could not really control them. Things are definitely better now than they were 3.5 months ago. No loss of bowel or bladder control. She states she has some pain and numbness in her hands and arms as well. She denies any significant neck pain. PAST MEDICAL HISTORY: She denies any significant past medical history. MEDICATIONS: She is not taking any prescription medications. She is on Lovenox while she has been here. ALLERGIES: SHE IS ALLERGIC TO AMOXICILLIN. PAST SURGICAL HISTORY: She denies any past surgical history. REVIEW OF SYSTEMS: As documented in the chart. PHYSICAL EXAMINATION: NEUROLOGIC: She has a fairly full range of motion of her cervical spine with no complaints. She can laterally rotate at least 45 close to 60 degrees to each side. She moves both upper extremities fully and actively. Her strength seems to be at 5/5 in all groups test in left arm and about 4/5 on the right arm. No Nilesh's noted. Weak showcase maker strength bilaterally. Distal pulses are intact. No obvious hyperreflexia. Sensation is intact to light touch throughout. No straight leg raising noted in the lower extremities. Her sensation again is intact to light touch throughout, although she states that it is not the same as it was before she had difficulty walking. She has good motor strength throughout. Babinski shows toes are downgoing. No clonus is present. Distal pulses are fair. She has loss of position sense of her great toes bilaterally. LABORATORY DATA: She had an MRI done in [facility] on 05/06/2017 or 05/08/2017, which showed primarily herniated disk at C5-6 with indentation of spinal cord. She had another MRI done here yesterday and comparing the two, I believe the herniation is not a significant as it was back in April. I will contact radiology, so that they can actually do a comparison on their report. No obvious cord edema or any other signal abnormalities noted. IMPRESSION AND PLAN: Herniated disk at C5-6. Perhaps that her fall in March, she sustained a transient injury to the spinal cord and now clinically things are quieting down. This is basically by her history in terms of how she could not walk at all back in April and how her legs were having apparent spasms and perhaps clonus on their own at that time, which is not present now. If she does clinically seem to be improving on her own, I would continue having her seen by physical therapy and progressively mobilize her as they can. Certainly if she plateaus or starts to worsen, then they may be an indication to go ahead surgically and decompress things. The loss of position sense is more posterior column, which does not fit at all with the rest of her exam, so again I think if she is showing signs of improving on her own, I would continue conservative care and not kamara to address this surgically. Thank you for allowing me to participate in the care of your patient. Agus Pimentel MD [facility]
[2017-08-23] MEDS: Enoxaparin 40 mg Syringe SC SCH (08:57)
--- NOTE | 2017-08-23 13:32 | CP.PCM.PN ---
Subjective - Date & Time of Evaluation Date of Evaluation: 08/23/17 Time of Evaluation: 13:29 - Subjective Subjective: Ms. Armenta was seen and examined today at bedside. 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 There were no new symptoms. There were no new events overnight. The patient was seen by Dr. Pimentel and there was a determination that her symptoms are likely due to the cervical spinal cord involvement. Acute rehab was recommended since there may be improvement in function without surgery at this time. Objective - Vital Signs/Intake and Output Vital Signs (last 24 hours): Temp Pulse Resp BP Pulse Ox 97.4 F L 97 H 22 102/67 95 08/23/17 08:19 08/23/17 08:19 08/23/17 08:19 08/23/17 08:19 08/23/17 08:19 - Medications Medications: Current Medications Acetaminophen (Tylenol 325mg Tab) 650 mg PO Q6 PRN PRN Reason: Pain, Mild (1-3) Last Admin: 08/20/17 11:30 Dose: 650 mg Acetaminophen/Codeine Phosphate (Tylenol/Codeine 300 Mg/30 Mg) 1 tab PO Q6 PRN PRN Reason: Pain, moderate (4-7) Last Admin: 08/23/17 00:59 Dose: 1 tab Enoxaparin Sodium (Lovenox) 40 mg SC DAILY ALVIN PRN Reason: Protocol Last Admin: 08/23/17 08:57 Dose: 40 mg Ondansetron HCl (Zofran Odt) 4 mg PO Q6 PRN PRN Reason: Nausea/Vomiting Last Admin: 08/21/17 15:51 Dose: 4 mg - Labs Labs: 08/21/17 13:22 08/22/17 10:08 PT 12.0 Seconds (9.8-13.1) 08/20/17 08:45 INR 1.1 (0.9-1.2) 08/20/17 08:45 APTT 35.1 Seconds (25.6-37.1) 08/20/17 08:45 - Neurological Exam Additional comments: Neurologically unchanged compared with previous examination. Assessment and Plan (1) Cervical disc herniation Assessment & Plan: I agree with Dr. Pimentel and recommend acute rehab considering the patient's underlying pathology may improve with physical therapy. Status: Acute
--- NOTE | 2017-08-23 21:51 | CP.PCM.PN ---
Subjective - Date & Time of Evaluation Date of Evaluation: 08/23/17 Time of Evaluation: 11:20 Objective - Vital Signs/Intake and Output Vital Signs (last 24 hours): Temp Pulse Resp BP Pulse Ox 98.4 F 101 H 20 123/88 95 08/23/17 16:38 08/23/17 16:38 08/23/17 16:38 08/23/17 16:38 08/23/17 16:38 - Medications Medications: Current Medications Acetaminophen (Tylenol 325mg Tab) 650 mg PO Q6 PRN PRN Reason: Pain, Mild (1-3) Last Admin: 08/20/17 11:30 Dose: 650 mg Acetaminophen/Codeine Phosphate (Tylenol/Codeine 300 Mg/30 Mg) 1 tab PO Q6 PRN PRN Reason: Pain, moderate (4-7) Last Admin: 08/23/17 00:59 Dose: 1 tab Enoxaparin Sodium (Lovenox) 40 mg SC DAILY ALVIN PRN Reason: Protocol Last Admin: 08/23/17 08:57 Dose: 40 mg Ondansetron HCl (Zofran Odt) 4 mg PO Q6 PRN PRN Reason: Nausea/Vomiting Last Admin: 08/21/17 15:51 Dose: 4 mg - Labs Labs: 08/21/17 13:22 08/22/17 10:08 PT 12.0 Seconds (9.8-13.1) 08/20/17 08:45 INR 1.1 (0.9-1.2) 08/20/17 08:45 APTT 35.1 Seconds (25.6-37.1) 08/20/17 08:45 Assessment and Plan (1) Unable to ambulate Status: Acute
[2017-08-24] MEDS: Acetaminophen-Codeine 300/30 mg Tab PO PRN (00:53)
[2017-08-24] MEDS: Enoxaparin 40 mg Syringe SC SCH (09:04)
[2017-08-24 16:34] VITALS: BP 121/79; PULSE 109; RESP 20; TEMP 98.5; O2SAT 96
--- NOTE | 2017-08-24 23:50 | CP.PCM.DIS ---
Provider - Provider Date of Admission: 08/19/17 14:04 Attending physician: Cj Alberto MD Time Spent in preparation of Discharge (in minutes): 25 Diagnosis - Discharge Diagnosis (1) Unable to ambulate Status: Acute Priority: Medium Hospital Course - Lab Results Lab Results: Micro Results 08/16/17 16:28 Blood Blood Culture - Final NO GROWTH AFTER 5 DAYS Most Recent Lab Values WBC 4.8 K/uL (4.8-10.8) 08/21/17 13:22 RBC 4.58 Mil/uL (3.80-5.20) 08/21/17 13:22 Hgb 13.6 g/dL (12.0-16.0) D 08/21/17 13:22 Hct 41.7 % (34.0-47.0) 08/21/17 13:22 MCV 91.0 fl (81.0-99.0) 08/21/17 13:22 MCH 29.8 pg (27.0-31.0) 08/21/17 13:22 MCHC 32.7 g/dL (33.0-37.0) L 08/21/17 13:22 RDW 15.4 % (11.5-14.5) H 08/21/17 13:22 Plt Count 232 K/uL (130-400) 08/21/17 13:22 MPV 8.8 fl (7.2-11.7) 08/16/17 16:39 Neut % (Auto) 38.6 % (50.0-75.0) L 08/16/17 16:39 Lymph % (Auto) 50.6 % (20.0-40.0) H 08/16/17 16:39 [place] % (Auto) 9.5 % (0.0-10.0) 08/16/17 16:39 Eos % (Auto) 0.5 % (0.0-4.0) 08/16/17 16:39 Baso % (Auto) 0.8 % (0.0-2.0) 08/16/17 16:39 Neut # (Auto) 2.2 K/uL (1.8-7.0) 08/16/17 16:39 Lymph # (Auto) 2.8 K/uL (1.0-4.3) 08/16/17 16:39 [place] # (Auto) 0.5 K/uL (0.0-0.8) 08/16/17 16:39 Eos # (Auto) 0.0 K/uL (0.0-0.7) 08/16/17 16:39 Baso # (Auto) 0.0 K/uL (0.0-0.2) 08/16/17 16:39 PT 12.0 Seconds (9.8-13.1) 08/20/17 08:45 INR 1.1 (0.9-1.2) 08/20/17 08:45 APTT 35.1 Seconds (25.6-37.1) 08/20/17 08:45 Sodium 141 mmol/l (132-148) 08/22/17 10:08 Potassium 3.6 MMOL/L (3.6-5.0) 08/22/17 10:08 Chloride 103 mmol/L (98-107) 08/22/17 10:08 Carbon Dioxide 26 mmol/L (22-30) 08/22/17 10:08 Anion Gap 16 (10-20) 08/22/17 10:08 BUN 6 mg/dl (7-17) L 08/22/17 10:08 Creatinine 0.5 mg/dl (0.7-1.2) L 08/22/17 10:08 Est GFR ( Amer) > 60 08/22/17 10:08 Est GFR (Non-Af Amer) > 60 08/22/17 10:08 Random Glucose 80 mg/dL (65-105) 08/22/17 10:08 Calcium 8.9 mg/dL (8.4-10.2) 08/22/17 10:08 Total Bilirubin 0.5 mg/dl (0.2-1.3) 08/16/17 16:39 AST 24 U/L (14-36) 08/16/17 16:39 ALT 32 U/L (9-52) 08/16/17 16:39 Alkaline Phosphatase 66 U/L (38-126) 08/16/17 16:39 Total Creatine Kinase 237 U/L (30-135) H 08/17/17 12:30 Total Protein 7.6 G/DL (6.3-8.2) 08/16/17 16:39 Albumin 3.8 g/dL (3.5-5.0) 08/16/17 16:39 Globulin 3.8 gm/dL (2.2-3.9) 08/16/17 16:39 Albumin/Globulin Ratio 1.0 (1.0-2.1) 08/16/17 16:39 Aldolase 8.9 U/L (<=8.1) H 08/17/17 12:30 Vitamin B12 349 pg/mL (239-931) 08/21/17 13:22 TSH 3rd Generation 0.66 mIU/ML (0.46-4.68) 08/17/17 12:30 RPR Nonreactive (NONREACTIVE) 08/21/17 13:22 Discharge Exam - Head Exam Head Exam: ATRAUMATIC, NORMAL INSPECTION, NORMOCEPHALIC Discharge Plan - Follow Up Plan Condition: STABLE Disposition: REHAB FACILITY/REHAB UNIT Instructions: Generalized Weakness (DC) Referrals: Cj Alberto MD [Staff Provider] -
== END 2017-08-24 18:36 | DRG 243 ==
LOC: H.ER 13:53 → H.ERHOLD 18:08 → H.MEDSURG1 22:25 → OBSVTOIN 08-19 14:04
PROVIDERS: ADMIT Internal Medicine; ATTEND Internal Medicine
DX: M50.222 Other cervical disc displacement at C5-C6 level (principal); M47.898 Other spondylosis, sacral and sacrococcygeal region; R53.1 Weakness; R26.2 Difficulty in walking, not elsewhere classified; Z91.81 History of falling; Z88.0 Allergy status to penicillin

== ENCOUNTER 2017-08-24 16:15 | Inpatient (IN) | payer MEDICAID ==
[2017-08-24 19:57] VITALS: BMI 38.9
[2017-08-24] MEDS ORDERED: Acetaminophen-Codeine 300/30 mg Tab PO PRN (21:06)
[2017-08-25] MEDS: Enoxaparin 40 mg Syringe SC SCH (09:00)
--- NOTE | 2017-08-25 12:18 | CP.PCM.HP ---
Past Patient History - Infectious Disease Hx of Infectious Diseases: None - Past Medical History & Family History Past Medical History?: Yes - Past Social History Smoking Status: Never Smoked - CARDIAC Hx Cardiac Disorders: No - PULMONARY Hx Respiratory Disorders: No - NEUROLOGICAL Hx Neurological Disorder: No Other/Comment: "nerve pain last year" - RENAL Hx Chronic Kidney Disease: No - ENDOCRINE/METABOLIC Hx Endocrine Disorders: No - HEMATOLOGICAL/ONCOLOGICAL Hx Blood Disorders: No - INTEGUMENTARY Hx Dermatological Problems: No - MUSCULOSKELETAL/RHEUMATOLOGICAL Hx Back Pain: Yes Hx Falls: Yes Hx Herniated Disk: Yes Hx Spinal Stenosis: Yes - GASTROINTESTINAL Hx Gastrointestinal Disorders: No - GENITOURINARY/GYNECOLOGICAL Hx Genitourinary Disorders: No - PSYCHIATRIC Hx Substance Use: No - SURGICAL HISTORY Hx Surgeries: No - ANESTHESIA Hx Anesthesia: No Meds Allergies/Adverse Reactions: Allergies Allergy/AdvReac Type Severity Reaction Status Date / Time amoxicillin Allergy SHORTNESS Verified 08/24/17 20:52 OF BREATH Results - Vital Signs Recent Vital Signs: Last Vital Signs Temp 98.2 F 08/25/17 07:37 Pulse 97 H 08/25/17 07:37 Resp 20 08/25/17 07:37 BP 121/70 08/25/17 07:37 Pulse Ox 100 08/25/17 07:37
--- NOTE | 2017-08-25 12:41 | CP.PCM.CON ---
History of Present Illness - History of Present Illness History of Present Illness: Ms. Armenta is a 36-year-old woman who is currently admitted for acute rehab due to generalized weakness that has been ongoing since 2016 and was exacerbated in April since she had a fall with injury to the back. I was consulted to evaluate her at [facility]. During that admission an MRI of the cervical spine was done and showed herniation of C5/6 with indentation of the spinal cord. It was slightly improved compared to an MRI done several months ago, but was still concerning. Neurosurgery evaluated the patient and did not recommend surgery at this time since the patient was improving somewhat and the underlying neuropathology was also improving. Acute rehab was recommended and follow up imaging to evaluate at a later date. Review of Systems - Review of Systems All systems: reviewed and no additional remarkable complaints except Past Patient History - Infectious Disease Hx of Infectious Diseases: None - Past Medical History & Family History Past Medical History?: Yes - Past Social History Smoking Status: Never Smoked - CARDIAC Hx Cardiac Disorders: No - PULMONARY Hx Respiratory Disorders: No - NEUROLOGICAL Hx Neurological Disorder: No Other/Comment: "nerve pain last year" - RENAL Hx Chronic Kidney Disease: No - ENDOCRINE/METABOLIC Hx Endocrine Disorders: No - HEMATOLOGICAL/ONCOLOGICAL Hx Blood Disorders: No - INTEGUMENTARY Hx Dermatological Problems: No - MUSCULOSKELETAL/RHEUMATOLOGICAL Hx Back Pain: Yes Hx Falls: Yes Hx Herniated Disk: Yes Hx Spinal Stenosis: Yes - GASTROINTESTINAL Hx Gastrointestinal Disorders: No - GENITOURINARY/GYNECOLOGICAL Hx Genitourinary Disorders: No - PSYCHIATRIC Hx Substance Use: No - SURGICAL HISTORY Hx Surgeries: No - ANESTHESIA Hx Anesthesia: No Meds Allergies/Adverse Reactions: Allergies Allergy/AdvReac Type Severity Reaction Status Date / Time amoxicillin Allergy SHORTNESS Verified 08/24/17 20:52 OF BREATH - Medications Medications: Current Medications Acetaminophen (Tylenol 325mg Tab) 650 mg PO Q6 PRN PRN Reason: Pain, Mild (1-3) Acetaminophen/Codeine Phosphate (Tylenol/Codeine 300 Mg/30 Mg) 1 tab PO Q6H PRN PRN Reason: Pain, moderate (4-7) Last Admin: 08/25/17 02:57 Dose: 1 tab Enoxaparin Sodium (Lovenox) 40 mg SC DAILY [facility] PRN Reason: Protocol Last Admin: 08/25/17 09:00 Dose: 40 mg Ondansetron HCl (Zofran Odt) 4 mg PO Q6 PRN PRN Reason: Nausea/Vomiting Physical Exam - Constitutional Appears: Well - Head Exam Head Exam: ATRAUMATIC, NORMAL INSPECTION, NORMOCEPHALIC - Eye Exam Eye Exam: EOMI, Normal appearance, PERRL - ENT Exam ENT Exam: Mucous Membranes Moist, Normal Exam - Respiratory Exam Respiratory Exam: Clear to Auscultation Bilateral, NORMAL BREATHING PATTERN - Cardiovascular Exam Cardiovascular Exam: REGULAR RHYTHM - GI/Abdominal Exam GI & Abdominal Exam: Normal Bowel Sounds, Soft. absent: Tenderness - Rectal Exam Rectal Exam: Deferred - Neurological Exam Neurological exam: Abnormal Gait, Alert, CN II-XII Intact, Oriented x3 Additional comments: Strength is decreased in both upper extremities and is affected more distally. She has decreased movement in both lower extremities with decreased sensation without any specific distribution pattern. She has position sense deficits as well that are sometimes inconsistent. Results - Vital Signs Recent Vital Signs: Last Vital Signs Temp 98.2 F 08/25/17 07:37 Pulse 97 H 08/25/17 07:37 Resp 20 08/25/17 07:37 BP 121/70 08/25/17 07:37 Pulse Ox 100 08/25/17 07:37 Assessment & Plan (1) Back pain, acute Status: Acute Priority: Medium (2) Cervical disc herniation Status: Acute Priority: High (3) Spinal stenosis Status: Acute (4) Weakness of both lower extremities Assessment and Plan: Continue PT/OT plan and manage pain as needed. Neurology will follow. Status: Acute
--- NOTE | 2017-08-25 14:33 | CP.PCM.CON ---
History of Present Illness - History of Present Illness History of Present Illness: Dr Bermudez PMR consultation on Rubi Armenta, born 1980, who has been admitted to [facility] acute inpatient rehabilitation with a decrease in strength and function. The cervical MRI had a C5/6 HNP with some central stenosis. She has no increase in tone, and plantar reflexes are down going. The Vaughn's sign is negative bilaterally. Manual motor testing was inconsistent. Review of Systems - Constitutional Constitutional: absent: Anorexia, Chills - EENT Eyes: absent: Blurred Vision Ears: absent: Ear Discharge Nose/Mouth/Throat: absent: Nasal Congestion - Cardiovascular Cardiovascular: absent: Chest Pain - Respiratory Respiratory: absent: Dyspnea, Hemoptysis - Gastrointestinal Gastrointestinal: Constipation - Neurological Neurological: Paresthesias (in the hands). absent: Abnormal Hearing, Abnormal Movements, Confusion, Radicular Pain - Psychiatric Psychiatric: absent: Anxiety Past Patient History - Infectious Disease Hx of Infectious Diseases: None - Past Medical History & Family History Past Medical History?: Yes - Past Social History Smoking Status: Never Smoked Alcohol: Social Home Situation {Lives}: With Family - CARDIAC Hx Cardiac Disorders: No - PULMONARY Hx Respiratory Disorders: No - NEUROLOGICAL Hx Neurological Disorder: No Other/Comment: "nerve pain last year" - RENAL Hx Chronic Kidney Disease: No - ENDOCRINE/METABOLIC Hx Endocrine Disorders: No - HEMATOLOGICAL/ONCOLOGICAL Hx Blood Disorders: No - INTEGUMENTARY Hx Dermatological Problems: No - MUSCULOSKELETAL/RHEUMATOLOGICAL Hx Back Pain: Yes Hx Falls: Yes Hx Herniated Disk: Yes Hx Spinal Stenosis: Yes - GASTROINTESTINAL Hx Gastrointestinal Disorders: No - GENITOURINARY/GYNECOLOGICAL Hx Genitourinary Disorders: No - PSYCHIATRIC Hx Substance Use: No - SURGICAL HISTORY Hx Surgeries: No - ANESTHESIA Hx Anesthesia: No Meds Allergies/Adverse Reactions: Allergies Allergy/AdvReac Type Severity Reaction Status Date / Time amoxicillin Allergy SHORTNESS Verified 08/24/17 20:52 OF BREATH - Medications Medications: Current Medications Acetaminophen (Tylenol 325mg Tab) 650 mg PO Q6 PRN PRN Reason: Pain, Mild (1-3) Acetaminophen/Codeine Phosphate (Tylenol/Codeine 300 Mg/30 Mg) 1 tab PO Q6H PRN PRN Reason: Pain, moderate (4-7) Last Admin: 08/25/17 02:57 Dose: 1 tab Enoxaparin Sodium (Lovenox) 40 mg SC DAILY [facility] PRN Reason: Protocol Last Admin: 08/25/17 09:00 Dose: 40 mg Ondansetron HCl (Zofran Odt) 4 mg PO Q6 PRN PRN Reason: Nausea/Vomiting Physical Exam - Constitutional Appears: Well, Non-toxic, No Acute Distress - Head Exam Head Exam: ATRAUMATIC, NORMAL INSPECTION, NORMOCEPHALIC - Eye Exam Eye Exam: EOMI - ENT Exam ENT Exam: Mucous Membranes Moist - Respiratory Exam Respiratory Exam: NORMAL BREATHING PATTERN - Cardiovascular Exam Cardiovascular Exam: REGULAR RHYTHM - GI/Abdominal Exam GI & Abdominal Exam: absent: Firm - Extremities Exam Extremities exam: Positive for: normal inspection. Negative for: calf tenderness - Neurological Exam Neurological exam: Alert, CN II-XII Intact, Oriented x3 - Psychiatric Exam Psychiatric exam: Flat Affect - Skin Skin Exam: Warm Results - Vital Signs Recent Vital Signs: Last Vital Signs Temp 98.2 F 08/25/17 07:37 Pulse 97 H 08/25/17 07:37 Resp 20 08/25/17 07:37 BP 121/70 08/25/17 07:37 Pulse Ox 100 08/25/17 07:37 Assessment & Plan - Assessment and Plan (Free Text) Assessment: PT/OT to continue to help increase functional independence Team conference for d/c planning Pain: controlled Vascular: no evidence of DVT GI: will monitor constipation Patient is an excellent acute rehabilitation candidate and will have focused PT, OT and recreational therapy to help facilitate a safe and appropriate d/c plan Impairment code 04.130
[2017-08-25] MEDS: Docusate-Senna 50 mg-8.6 mg Tab PO SCH (21:41)
[2017-08-26] MEDS: Pantoprazole 40 mg EC Tab PO SCH (08:38)
[2017-08-26] MEDS: Enoxaparin 40 mg Syringe SC SCH (08:38)
[2017-08-26 09:52] LABS: HEMOGLOBIN 14.3 g/dL (12.0-16.0); MEAN CELL VOLUME 90.9 fl (81.0-99.0); MEAN CORPUSCULAR HEMOGLOBIN 29.8 pg (27.0-31.0); MEAN CORPUSCULAR HGB CONC 32.8 g/dL (33.0-37.0); RBC 4.78 Mil/uL (3.80-5.20); RED CELL DISTRIBUTION WIDTH 15.5 % (11.5-14.5); WHITE BLOOD COUNT 6.4 K/uL (4.8-10.8)
[2017-08-26 09:53] LABS: BLOOD UREA NITROGEN 4 mg/dl (7-17); CALCIUM 9.4 mg/dL (8.4-10.2); GFR AFRICAN-AMERICAN > 60; GFR NON-AFRICAN AMERICAN > 60
[2017-08-26] MEDS: Docusate-Senna 50 mg-8.6 mg Tab PO SCH (21:20)
--- NOTE | 2017-08-26 22:10 | CP.PCM.PN ---
Subjective - Date & Time of Evaluation Date of Evaluation: 08/26/17 Time of Evaluation: 13:55 Objective - Vital Signs/Intake and Output Vital Signs (last 24 hours): Temp Pulse Resp BP Pulse Ox 97.7 F 100 H 20 137/74 100 08/26/17 20:09 08/26/17 20:09 08/26/17 20:09 08/26/17 20:09 08/26/17 20:09 - Medications Medications: Current Medications Acetaminophen (Tylenol 325mg Tab) 650 mg PO Q6 PRN PRN Reason: Pain, Mild (1-3) Acetaminophen/Codeine Phosphate (Tylenol/Codeine 300 Mg/30 Mg) 1 tab PO Q6 PRN PRN Reason: for pain scale 4-10\ Enoxaparin Sodium (Lovenox) 40 mg SC DAILY [facility] PRN Reason: Protocol Last Admin: 08/26/17 08:38 Dose: 40 mg Lactulose (Enulose) 20 gm PO BID [facility] Last Admin: 08/26/17 17:15 Dose: 20 gm Ondansetron HCl (Zofran Odt) 4 mg PO Q6 PRN PRN Reason: Nausea/Vomiting Pantoprazole Sodium (Protonix Ec Tab) 40 mg PO DAILY [facility] Last Admin: 08/26/17 08:38 Dose: 40 mg Senna/Docusate Sodium (Senokot S 50 Mg-8.6 Mg) 2 tab PO HS [facility] Last Admin: 08/26/17 21:20 Dose: 2 tab - Labs Labs: 08/26/17 07:39 08/26/17 07:39
[2017-08-27] MEDS: Enoxaparin 40 mg Syringe SC SCH (09:18)
[2017-08-27] MEDS: Pantoprazole 40 mg EC Tab PO SCH ×2 (09:19→09:25)
--- NOTE | 2017-08-27 11:25 | CP.PCM.PN ---
Subjective - Date & Time of Evaluation Date of Evaluation: 08/27/17 Time of Evaluation: 11:17 - Subjective Subjective: Ms. Armenta was seen and examined during therapy session. She is alert, oriented in all spheres. She denies any headache, lightheadedness, blurred vision, diplopia, nausea, or vomiting. She is able to follow simple commands. She claims of unable to ambulate. She is able to transfer from the bed to wheelchair, but she position her feet are not properly/ sideways. There was no untoward events overnight. Objective - Vital Signs/Intake and Output Vital Signs (last 24 hours): Temp Pulse Resp BP Pulse Ox 98.3 F 100 H 21 122/83 100 08/27/17 08:56 08/27/17 08:56 08/27/17 08:56 08/27/17 08:56 08/27/17 08:56 - Medications Medications: Current Medications Acetaminophen (Tylenol 325mg Tab) 650 mg PO Q6 PRN PRN Reason: Pain, Mild (1-3) Acetaminophen/Codeine Phosphate (Tylenol/Codeine 300 Mg/30 Mg) 1 tab PO Q6 PRN PRN Reason: for pain scale 4-10\ Enoxaparin Sodium (Lovenox) 40 mg SC DAILY [facility] PRN Reason: Protocol Last Admin: 08/27/17 09:18 Dose: 40 mg Lactulose (Enulose) 20 gm PO BID [facility] Last Admin: 08/27/17 09:19 Dose: Not Given Ondansetron HCl (Zofran Odt) 4 mg PO Q6 PRN PRN Reason: Nausea/Vomiting Pantoprazole Sodium (Protonix Ec Tab) 40 mg PO DAILY [facility] Last Admin: 08/27/17 09:25 Dose: Not Given Senna/Docusate Sodium (Senokot S 50 Mg-8.6 Mg) 2 tab PO HS [facility] Last Admin: 08/26/17 21:20 Dose: 2 tab - Labs Labs: 08/26/17 07:39 08/26/17 07:39 - Constitutional Appears: No Acute Distress - Head Exam Head Exam: NORMAL INSPECTION - Neurological Exam Neurological Exam: Alert Neuro motor strength exam: Left Upper Extremity: 5, Right Upper Extremity: 5, Left Lower Extremity: 4, Right Lower Extremity: 4 Additional comments: She is alert, oriented, able to follow simple commands. She has decreased movement in both lower extremities with decreased sensation without any specific distribution pattern. She has position sense deficits as well that are sometimes inconsistent. Assessment and Plan (1) Weakness of both lower extremities Assessment & Plan: Case discussed with Dr. Freedman, continue all current medical, physical, and occupational therapies. Encourage patient to perform simple lower extremities muscle while sitting in wheelchair. The patient is also being seen by a psychiatrist. Status: Acute
[2017-08-27] MEDS: Acetaminophen-Codeine 300/30 mg Tab PO PRN (17:15)
--- NOTE | 2017-08-27 18:49 | CP.PCM.PN ---
Subjective - Date & Time of Evaluation Date of Evaluation: 08/27/17 Time of Evaluation: 18:50 - Subjective Subjective: Seen and examined at the bed side. She have had BMV last night after laxatives and fleet Enema. Abdominal Discomfort has resolved. Participating in therapy. Objective - Vital Signs/Intake and Output Vital Signs (last 24 hours): Temp Pulse Resp BP Pulse Ox 98.3 F 100 H 21 122/83 100 08/27/17 08:56 08/27/17 08:56 08/27/17 08:56 08/27/17 08:56 08/27/17 08:56 - Medications Medications: Current Medications Acetaminophen (Tylenol 325mg Tab) 650 mg PO Q6 PRN PRN Reason: Pain, Mild (1-3) Acetaminophen/Codeine Phosphate (Tylenol/Codeine 300 Mg/30 Mg) 1 tab PO Q6 PRN PRN Reason: for pain scale 4-10\ Last Admin: 08/27/17 17:15 Dose: 1 tab Enoxaparin Sodium (Lovenox) 40 mg SC DAILY [facility] PRN Reason: Protocol Last Admin: 08/27/17 09:18 Dose: 40 mg Lactulose (Enulose) 20 gm PO BID [facility] Last Admin: 08/27/17 17:11 Dose: Not Given Ondansetron HCl (Zofran Odt) 4 mg PO Q6 PRN PRN Reason: Nausea/Vomiting Senna/Docusate Sodium (Senokot S 50 Mg-8.6 Mg) 2 tab PO HS [facility] Last Admin: 08/26/17 21:20 Dose: 2 tab - Labs Labs: 08/26/17 07:39 08/26/17 07:39
--- NOTE | 2017-08-27 18:51 | PCM.OPOC ---
Physiatry Overall Plan of Care - Overall Plan of Care Estimated Length of Stay in Weeks: 2 Rehab Impairment: Mobility, Gait, Balance Etiologic Diagnosis: Other (cervical stenosis) Rehab/Medical Prognosis: Fair - Anticipated Interventions Physical Therapy:: Yes Occupational Therapy:: Yes Speech Therapy:: No Recreational Therapy:: Yes - Therapy Goals Bed Mobility: Supervision Ambulation: Supervision Functional Positional Changes:: Supervision - Discharge Plan Discharge Destination: Home
[2017-08-27] MEDS: Docusate-Senna 50 mg-8.6 mg Tab PO SCH (21:45)
[2017-08-28] MEDS: Enoxaparin 40 mg Syringe SC SCH (08:59)
--- NOTE | 2017-08-28 13:28 | PSY.TMCNF ---
Nursing - Vital Signs Vital Signs (Last 8 hours): Vital Signs 08/28/17 08:49 Temperature 96.9 F L Pulse Rate 97 H Respiratory 20 Rate Blood Pressure 120/73 O2 Sat by Pulse 99 Oximetry Pain: 0 - Medications/Other Issues Comment: Pt at high nutritional risk. goals: 1. Improve PO intake to greater than 75% at mealtimes. 2. Report BM regularity at next nutrition reassessment. Follow-up due on 08/30/2017 - Bladder Management Bladder Pattern: Normal Voiding Method: Bedpan - Bowel Management Bowel Pattern: Constipated - Goals/Time Frame Comments: Pt was seen awake and alert sitting in her wheelchair in her room. Pt agreeable to visit. Pt expressed pain in hands and feet as well as reported weakness in UE and LE. Pt reported that she was very active and independent prior to a fall on in March 2017. Pt reported she would go out with friends and social events prior to fall. 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 Pt has not returned to work since and her goal is to regain strength to become independent again. Pt expressed minimal interest in participating in recreation therapy sessions throughout stay on unit and will benefit from encouragement to participate in tasks. Pt's mood was stable-positive although anxious to attend therapy session later in afternoon. Physical Therapy - Bed Mobility Bed Mobility: Verbal Cues, Minimal Assistance - Transfers Wheelchair to Mat: Verbal Cues, Maximum Assistance Sit to Stand: Verbal Cues, Minimal Assistance, Moderate Assistance - Ambulation Level of Assistance: Maximum Assistance Distance (ft.): 50 Assistive Devices: N/A, Rolling Walker Orthoses: n/a Comment: -20 feet with walker with max A, slow speed, poor ankle control, ataxic pattern, downward gaze with increased inversion moment noted during initial contact and mid-stance. -50 feet with B hand held assistance with very close WC follow. -patient with poor ankle control, instances of buckling, narrow base of support. -increased speed slightly reduced patient's ataxic presentation. -trials with B PT hand held assistance with VCs for counting quickly out-loud (for distraction) and upright gaze to improve posture and distraction - Stair Negotiation Stairs: Level of Assistance: Not Tested - Standing Balance Static Stand: Contact Guard Assist Dynamic Stand: Minimal Assistance - Pain Pain (assessed during therapy session): 7 Management Techniques: Medication - Insight/Carryover Insight/Carryover: Good - Patient/Family Education Comment: safety, therapy schedule, therapy goals, mobility, use of call groves, WC mobility, positioning, postural control, transfers - Assessment/Plan Assessment: Patient is a 36 y/o female who currently presents with decreased gross/fine motor coordination, endurance, strength, functional mobility/ transfers, and self-care. Patient will benefit from skilled Occupational Therapy services to increase functional [place]. - Goals Goals: Self-care to be Independent. Transfers to be Modified Independent - Provider License Number: [id number] Occupational Therapy - Arousal/Attention/Orientation Level of Consciousness: Awake, Alert Patient Orientation: Person, Place, Time, Appropriate to Age, Appropriate to Situation - ADL/IADL Self Feeding: Supervision, Set-up Help Grooming: Supervision, Set-up Help Dressing-Upper Extremity: Supervision, Set-up Help Dressing-Lower Extremity: Set-up Help, Minimal Assistance - Sitting Balance Static Sitting: Independent with upper extremity support Dynamic Sitting: Requires supervision - Transfers Wheelchair to Bed Transfers: Minimal Assistance Toilet Transfers: Minimal Assistance - Wheelchair Management Level of Assistance: Supervision Distance (ft.): 150 - Pain Pain (assessed during therapy session): 7 Alleviating Techniques: Medication - Insight/Carryover Insight/Carryover: Good - Patient/Family Education Comment: safety, therapy schedule, therapy goals, mobility, use of call groves, WC mobility, positioning, postural control, transfers - Assessment/Plan Assessment: Patient is a 36 y/o female who currently presents with decreased gross/fine motor coordination, endurance, strength, functional mobility/ transfers, and self-care. Patient will benefit from skilled Occupational Therapy services to increase functional [place]. - Goals Goals: Self-care to be Independent. Transfers to be Modified Independent - Provider Therapist: Margret WATSON/[facility] - Plan Assessment: Patient is a 36 y/o female who currently presents with decreased gross/fine motor coordination, endurance, strength, functional mobility/ transfers, and self-care. Patient will benefit from skilled Occupational Therapy services to increase functional [place]. Recreational Therapy - Participation Participation: Monitors His/Her Own Leisure Time - Attendance Attendance: Daily - Activities Leisure Activities: Television - Socialization Level of Socialization: Initiates/interacts freely with care givers and peer - Assessment Assessment/Plan: Patient is a 36 y/o female who currently presents with decreased gross/fine motor coordination, endurance, strength, functional mobility/transfers, and self-care. Patient will benefit from skilled Occupational Therapy services to increase functional [place]. - Provider Therapist: Wendy Shelton, [facility] #[id number] Nutrition - Current Diet Current Diet/ Supplement/ Feedings: Regular diet - Appetite Percent Meal Consumed: 75-100% - Assessment/Goals/Time Frame Assessment/Goals/Time Frame: Pt at high nutritional risk. goals: 1. Improve PO intake to greater than 75% at mealtimes. 2. Report BM regularity at next nutrition reassessment. Follow-up due on 08/30/2017 - Provider Provider: Shi Bella RD Rehabilitation Plan - Treatment Plan Treatment Plan: Physical Therapy, Occupational Therapy, Dietary, Patient/Family Education - Discharge Plan Estimated Date of Discharge: 09/05/17 Discharge to: Home
--- NOTE | 2017-08-28 14:03 | CP.PCM.PN ---
Subjective - Date & Time of Evaluation Date of Evaluation: 08/28/17 Time of Evaluation: 14:02 - Subjective Subjective: Patient seen in the room doing ok inconsistent with abilities in therapies not clear will start a prednisone taper and see if this can be helpful with therapies Objective - Vital Signs/Intake and Output Vital Signs (last 24 hours): Temp Pulse Resp BP Pulse Ox 96.9 F L 97 H 20 120/73 99 08/28/17 08:49 08/28/17 08:49 08/28/17 08:49 08/28/17 08:49 08/28/17 08:49 - Medications Medications: Current Medications Acetaminophen (Tylenol 325mg Tab) 650 mg PO Q6 PRN PRN Reason: Pain, Mild (1-3) Acetaminophen/Codeine Phosphate (Tylenol/Codeine 300 Mg/30 Mg) 1 tab PO Q6 PRN PRN Reason: for pain scale 4-10\ Last Admin: 08/27/17 17:15 Dose: 1 tab Enoxaparin Sodium (Lovenox) 40 mg SC DAILY [facility] PRN Reason: Protocol Last Admin: 08/28/17 08:59 Dose: 40 mg Lactulose (Enulose) 20 gm PO BID [facility] Last Admin: 08/28/17 08:59 Dose: Not Given Ondansetron HCl (Zofran Odt) 4 mg PO Q6 PRN PRN Reason: Nausea/Vomiting Prednisone (Prednisone Tab) 60 mg PO Q24H [facility] Stop: 08/29/17 13:46 Prednisone (Prednisone Tab) 50 mg PO Q24H [facility] Stop: 08/31/17 13:33 Prednisone (Prednisone Tab) 40 mg PO Q24H [facility] Stop: 09/02/17 13:33 Prednisone (Prednisone Tab) 30 mg PO Q24H [facility] Stop: 09/04/17 13:33 Prednisone (Prednisone Tab) 20 mg PO Q24H [facility] Stop: 09/06/17 13:33 Prednisone (Prednisone Tab) 10 mg PO Q24H [facility] Stop: 09/08/17 13:33 Senna/Docusate Sodium (Senokot S 50 Mg-8.6 Mg) 2 tab PO HS [facility] Last Admin: 08/27/17 21:45 Dose: Not Given - Labs Labs: 08/26/17 07:39 08/26/17 07:39
[2017-08-28] MEDS: Docusate-Senna 50 mg-8.6 mg Tab PO SCH ×2 (21:56→22:00)
--- NOTE | 2017-08-28 21:58 | CP.PCM.PN ---
Subjective - Date & Time of Evaluation Date of Evaluation: 08/28/17 Time of Evaluation: 18:10 Objective - Vital Signs/Intake and Output Vital Signs (last 24 hours): Temp Pulse Resp BP Pulse Ox 98.6 F 101 H 20 137/59 L 97 08/28/17 20:37 08/28/17 20:37 08/28/17 20:37 08/28/17 20:37 08/28/17 20:37 - Medications Medications: Current Medications Acetaminophen (Tylenol 325mg Tab) 650 mg PO Q6 PRN PRN Reason: Pain, Mild (1-3) Acetaminophen/Codeine Phosphate (Tylenol/Codeine 300 Mg/30 Mg) 1 tab PO Q6 PRN PRN Reason: for pain scale 4-10\ Last Admin: 08/27/17 17:15 Dose: 1 tab Enoxaparin Sodium (Lovenox) 40 mg SC DAILY [facility] PRN Reason: Protocol Last Admin: 08/28/17 08:59 Dose: 40 mg Lactulose (Enulose) 20 gm PO BID [facility] Last Admin: 08/28/17 18:16 Dose: 20 gm Ondansetron HCl (Zofran Odt) 4 mg PO Q6 PRN PRN Reason: Nausea/Vomiting Prednisone (Prednisone Tab) 60 mg PO Q24H [facility] Stop: 08/29/17 13:46 Last Admin: 08/28/17 15:00 Dose: 60 mg Prednisone (Prednisone Tab) 50 mg PO Q24H [facility] Stop: 08/31/17 13:33 Prednisone (Prednisone Tab) 40 mg PO Q24H [facility] Stop: 09/02/17 13:33 Prednisone (Prednisone Tab) 30 mg PO Q24H [facility] Stop: 09/04/17 13:33 Prednisone (Prednisone Tab) 20 mg PO Q24H [facility] Stop: 09/06/17 13:33 Prednisone (Prednisone Tab) 10 mg PO Q24H [facility] Stop: 09/08/17 13:33 Senna/Docusate Sodium (Senokot S 50 Mg-8.6 Mg) 2 tab PO HS [facility] Last Admin: 08/28/17 21:56 Dose: 2 tab - Labs Labs: 08/26/17 07:39 08/26/17 07:39
[2017-08-29] MEDS: Acetaminophen-Codeine 300/30 mg Tab PO PRN ×2 (00:27→09:33)
[2017-08-29 06:46] LABS: HEMOGLOBIN 13.5 g/dL (12.0-16.0); MEAN CELL VOLUME 90.7 fl (81.0-99.0); MEAN CORPUSCULAR HEMOGLOBIN 29.6 pg (27.0-31.0); MEAN CORPUSCULAR HGB CONC 32.6 g/dL (33.0-37.0); RBC 4.56 Mil/uL (3.80-5.20); RED CELL DISTRIBUTION WIDTH 15.6 % (11.5-14.5); WHITE BLOOD COUNT 8.8 K/uL (4.8-10.8)
[2017-08-29 07:41] LABS: BLOOD UREA NITROGEN 5 mg/dl (7-17); CALCIUM 9.2 mg/dL (8.4-10.2); GFR AFRICAN-AMERICAN > 60; GFR NON-AFRICAN AMERICAN > 60
[2017-08-29] MEDS: Enoxaparin 40 mg Syringe SC SCH (09:34)
--- NOTE | 2017-08-29 10:55 | CP.PCM.PN ---
Subjective - Date & Time of Evaluation Date of Evaluation: 08/29/17 Time of Evaluation: 10:49 - Subjective Subjective: Ms. Armenta was seen and examined at the bedside. She is alert, oriented in all spheres. She is able to play with her phone using her fingers, moves her lower extremities. She can extend and flex her bilateral feet.She denies any headache , dizziness, numbness. She claims of participating during therapy session. There was no untoward events overnight. Objective - Vital Signs/Intake and Output Vital Signs (last 24 hours): Temp Pulse Resp BP Pulse Ox 97.7 F 101 H 20 126/86 98 08/29/17 08:19 08/29/17 08:19 08/29/17 08:19 08/29/17 08:19 08/29/17 08:19 - Medications Medications: Current Medications Acetaminophen (Tylenol 325mg Tab) 650 mg PO Q6 PRN PRN Reason: Pain, Mild (1-3) Acetaminophen/Codeine Phosphate (Tylenol/Codeine 300 Mg/30 Mg) 1 tab PO Q6 PRN PRN Reason: for pain scale 4-10\ Last Admin: 08/29/17 09:33 Dose: 1 tab Enoxaparin Sodium (Lovenox) 40 mg SC DAILY [facility] PRN Reason: Protocol Last Admin: 08/29/17 09:34 Dose: 40 mg Lactulose (Enulose) 20 gm PO BID [facility] Last Admin: 08/29/17 09:34 Dose: Not Given Ondansetron HCl (Zofran Odt) 4 mg PO Q6 PRN PRN Reason: Nausea/Vomiting Prednisone (Prednisone Tab) 60 mg PO Q24H [facility] Stop: 08/29/17 13:46 Last Admin: 08/28/17 15:00 Dose: 60 mg Prednisone (Prednisone Tab) 50 mg PO Q24H [facility] Stop: 08/31/17 13:33 Prednisone (Prednisone Tab) 40 mg PO Q24H [facility] Stop: 09/02/17 13:33 Prednisone (Prednisone Tab) 30 mg PO Q24H [facility] Stop: 09/04/17 13:33 Prednisone (Prednisone Tab) 20 mg PO Q24H [facility] Stop: 09/06/17 13:33 Prednisone (Prednisone Tab) 10 mg PO Q24H [facility] Stop: 09/08/17 13:33 Senna/Docusate Sodium (Senokot S 50 Mg-8.6 Mg) 2 tab PO HS [facility] Last Admin: 08/28/17 22:00 Dose: Not Given - Labs Labs: 08/29/17 06:05 08/29/17 06:05 - Constitutional Appears: No Acute Distress - Head Exam Head Exam: NORMAL INSPECTION - Neurological Exam Neurological Exam: Alert, Awake Neuro motor strength exam: Left Upper Extremity: 5, Right Upper Extremity: 5, Left Lower Extremity: 5, Right Lower Extremity: 5 Additional comments: Neurological unchanged from previous examination. Assessment and Plan (1) Weakness of both lower extremities Assessment & Plan: Case discussed with Dr. Lindsey, continue all current medical, physical, and occupational therapies. Encourage patient to perform simple lower extremities muscle while sitting in wheelchair. The patient is also being seen by a psychiatrist. Status: Acute
[2017-08-29] MEDS: Docusate-Senna 50 mg-8.6 mg Tab PO SCH (22:21)
[2017-08-30] MEDS: Enoxaparin 40 mg Syringe SC SCH (09:01)
--- NOTE | 2017-08-30 10:37 | CP.PCM.PN ---
Subjective - Date & Time of Evaluation Date of Evaluation: 08/30/17 Time of Evaluation: 10:37 - Subjective Subjective: Ms. Armenta was seen and examined at the bedside. She is alert, oriented in all spheres. She is able to play with her phone using her fingers, moves her lower extremities. She can extend and flex her bilateral feet. She is in bed with her shoes She denies any headache, dizziness, numbness. She claims of participating during therapy session. There was no untoward events overnight. Objective - Vital Signs/Intake and Output Vital Signs (last 24 hours): Temp Pulse Resp BP Pulse Ox 97.7 F 101 H 20 139/86 98 08/29/17 08:19 08/29/17 20:34 08/29/17 20:34 08/29/17 20:34 08/29/17 20:34 - Medications Medications: Current Medications Acetaminophen (Tylenol 325mg Tab) 650 mg PO Q6 PRN PRN Reason: Pain, Mild (1-3) Acetaminophen/Codeine Phosphate (Tylenol/Codeine 300 Mg/30 Mg) 1 tab PO Q6 PRN PRN Reason: for pain scale 4-10\ Last Admin: 08/29/17 09:33 Dose: 1 tab Enoxaparin Sodium (Lovenox) 40 mg SC DAILY [facility] PRN Reason: Protocol Last Admin: 08/30/17 09:01 Dose: 40 mg Lactulose (Enulose) 20 gm PO BID [facility] Last Admin: 08/30/17 09:01 Dose: Not Given Ondansetron HCl (Zofran Odt) 4 mg PO Q6 PRN PRN Reason: Nausea/Vomiting Prednisone (Prednisone Tab) 50 mg PO Q24H [facility] Stop: 08/31/17 13:33 Prednisone (Prednisone Tab) 40 mg PO Q24H [facility] Stop: 09/02/17 13:33 Prednisone (Prednisone Tab) 30 mg PO Q24H [facility] Stop: 09/04/17 13:33 Prednisone (Prednisone Tab) 20 mg PO Q24H [facility] Stop: 09/06/17 13:33 Prednisone (Prednisone Tab) 10 mg PO Q24H [facility] Stop: 09/08/17 13:33 Senna/Docusate Sodium (Senokot S 50 Mg-8.6 Mg) 2 tab PO HS [facility] Last Admin: 08/29/17 22:21 Dose: Not Given - Labs Labs: 08/29/17 06:05 08/29/17 06:05 - Constitutional Appears: No Acute Distress - Head Exam Head Exam: NORMAL INSPECTION - Neurological Exam Neurological Exam: Alert, Awake, Oriented x3 Neuro motor strength exam: Left Upper Extremity: 5, Right Upper Extremity: 5, Left Lower Extremity: 4, Right Lower Extremity: 4 Additional comments: Neurological unchanged from previous examination. Assessment and Plan (1) Weakness of both lower extremities Assessment & Plan: Case discussed with Dr. Lindsey, continue all current medical, physical, and occupational therapies. Encourage patient to perform simple lower extremities muscle while sitting in wheelchair. The patient is also being seen by a psychiatrist. Status: Acute
[2017-08-30] MEDS: Docusate-Senna 50 mg-8.6 mg Tab PO PRN (21:18)
--- NOTE | 2017-08-30 23:23 | CP.PCM.PN ---
Subjective - Date & Time of Evaluation Date of Evaluation: 08/30/17 Time of Evaluation: 18:50 Objective - Vital Signs/Intake and Output Vital Signs (last 24 hours): Temp Pulse Resp BP Pulse Ox 98.1 F 101 H 20 146/86 96 08/30/17 21:14 08/30/17 21:14 08/30/17 21:14 08/30/17 21:14 08/30/17 21:14 - Medications Medications: Current Medications Acetaminophen (Tylenol 325mg Tab) 650 mg PO Q6 PRN PRN Reason: Pain, Mild (1-3) Acetaminophen/Codeine Phosphate (Tylenol/Codeine 300 Mg/30 Mg) 1 tab PO Q6 PRN PRN Reason: for pain scale 4-10\ Enoxaparin Sodium (Lovenox) 40 mg SC DAILY [facility] PRN Reason: Protocol Last Admin: 08/30/17 09:01 Dose: 40 mg Lactulose (Enulose) 20 gm PO BID PRN PRN Reason: Constipation Last Admin: 08/30/17 21:18 Dose: 20 gm Ondansetron HCl (Zofran Odt) 4 mg PO Q6 PRN PRN Reason: Nausea/Vomiting Prednisone (Prednisone Tab) 50 mg PO Q24H [facility] Stop: 08/31/17 13:33 Last Admin: 08/30/17 13:30 Dose: 50 mg Prednisone (Prednisone Tab) 40 mg PO Q24H [facility] Stop: 09/02/17 13:33 Prednisone (Prednisone Tab) 30 mg PO Q24H [facility] Stop: 09/04/17 13:33 Prednisone (Prednisone Tab) 20 mg PO Q24H [facility] Stop: 09/06/17 13:33 Prednisone (Prednisone Tab) 10 mg PO Q24H [facility] Stop: 09/08/17 13:33 Senna/Docusate Sodium (Senokot S 50 Mg-8.6 Mg) 2 tab PO HS PRN PRN Reason: Constipation Last Admin: 08/30/17 21:18 Dose: 2 tab - Labs Labs: 08/29/17 06:05 08/29/17 06:05
[2017-08-31] MEDS: Enoxaparin 40 mg Syringe SC SCH (08:30)
--- NOTE | 2017-08-31 10:45 | CP.PCM.PN ---
Subjective - Date & Time of Evaluation Date of Evaluation: 08/31/17 Time of Evaluation: 10:45 - Subjective Subjective: Ms. Armenta was seen and examined during therapy session. She is alert, oriented in all spheres. She denies any headache, lightheadedness, blurred vision, diplopia, nausea, or vomiting. She is able to follow simple commands. She is able to participate during her therapy session.She is having hard time with fine motor skills with an audience, but able to perform it without any audience.She claims of unable to ambulate. She is able to transfer from the bed to wheelchair, but she position her feet are not properly/ sideways. There was no untoward events overnight. Objective - Vital Signs/Intake and Output Vital Signs (last 24 hours): Temp Pulse Resp BP Pulse Ox 97.7 F 88 20 119/71 98 08/31/17 07:37 08/31/17 07:37 08/31/17 07:37 08/31/17 07:37 08/31/17 07:37 - Medications Medications: Current Medications Acetaminophen (Tylenol 325mg Tab) 650 mg PO Q6 PRN PRN Reason: Pain, Mild (1-3) Acetaminophen/Codeine Phosphate (Tylenol/Codeine 300 Mg/30 Mg) 1 tab PO Q6 PRN PRN Reason: for pain scale 4-10\ Enoxaparin Sodium (Lovenox) 40 mg SC DAILY [facility] PRN Reason: Protocol Last Admin: 08/31/17 08:30 Dose: 40 mg Lactulose (Enulose) 20 gm PO BID PRN PRN Reason: Constipation Last Admin: 08/30/17 21:18 Dose: 20 gm Ondansetron HCl (Zofran Odt) 4 mg PO Q6 PRN PRN Reason: Nausea/Vomiting Prednisone (Prednisone Tab) 50 mg PO Q24H [facility] Stop: 08/31/17 13:33 Last Admin: 08/30/17 13:30 Dose: 50 mg Prednisone (Prednisone Tab) 40 mg PO Q24H [facility] Stop: 09/02/17 13:33 Prednisone (Prednisone Tab) 30 mg PO Q24H [facility] Stop: 09/04/17 13:33 Prednisone (Prednisone Tab) 20 mg PO Q24H [facility] Stop: 09/06/17 13:33 Prednisone (Prednisone Tab) 10 mg PO Q24H [facility] Stop: 09/08/17 13:33 Senna/Docusate Sodium (Senokot S 50 Mg-8.6 Mg) 2 tab PO HS PRN PRN Reason: Constipation Last Admin: 08/30/17 21:18 Dose: 2 tab - Labs Labs: 08/29/17 06:05 08/29/17 06:05 - Constitutional Appears: No Acute Distress - Head Exam Head Exam: NORMAL INSPECTION - Neurological Exam Neurological Exam: Alert, Awake, Oriented x3 Neuro motor strength exam: Left Upper Extremity: 5, Right Upper Extremity: 5, Left Lower Extremity: 5, Right Lower Extremity: 5 Additional comments: Neurological unchanged from previous examination. Assessment and Plan (1) Weakness of both lower extremities Assessment & Plan: Case discussed with Dr. Lindsey, continue all current medical, physical, occupational, and speech therapies. There is no new recommendations from neurology. Status: Acute
--- NOTE | 2017-08-31 17:09 | CP.PCM.PN ---
Subjective - Date & Time of Evaluation Date of Evaluation: 08/31/17 Time of Evaluation: 17:08 - Subjective Subjective: Patient seen in rec therapy in good spirits happy with care doesn't note any real change with steroid not clear on etiology of the functional decline prior and after no response to the steroid even less clear continue current care Objective - Vital Signs/Intake and Output Vital Signs (last 24 hours): Temp Pulse Resp BP Pulse Ox 97.7 F 88 20 119/71 98 08/31/17 07:37 08/31/17 07:37 08/31/17 07:37 08/31/17 07:37 08/31/17 07:37 - Medications Medications: Current Medications Acetaminophen (Tylenol 325mg Tab) 650 mg PO Q6 PRN PRN Reason: Pain, Mild (1-3) Acetaminophen/Codeine Phosphate (Tylenol/Codeine 300 Mg/30 Mg) 1 tab PO Q6 PRN PRN Reason: for pain scale 4-10\ Enoxaparin Sodium (Lovenox) 40 mg SC DAILY [facility] PRN Reason: Protocol Last Admin: 08/31/17 08:30 Dose: 40 mg Lactulose (Enulose) 20 gm PO BID PRN PRN Reason: Constipation Last Admin: 08/30/17 21:18 Dose: 20 gm Ondansetron HCl (Zofran Odt) 4 mg PO Q6 PRN PRN Reason: Nausea/Vomiting Prednisone (Prednisone Tab) 40 mg PO Q24H [facility] Stop: 09/02/17 13:33 Prednisone (Prednisone Tab) 30 mg PO Q24H [facility] Stop: 09/04/17 13:33 Prednisone (Prednisone Tab) 20 mg PO Q24H [facility] Stop: 09/06/17 13:33 Prednisone (Prednisone Tab) 10 mg PO Q24H [facility] Stop: 09/08/17 13:33 Senna/Docusate Sodium (Senokot S 50 Mg-8.6 Mg) 2 tab PO HS PRN PRN Reason: Constipation Last Admin: 08/30/17 21:18 Dose: 2 tab - Labs Labs: 08/29/17 06:05 08/29/17 06:05
[2017-08-31] MEDS: Docusate-Senna 50 mg-8.6 mg Tab PO PRN (19:51)
[2017-09-01] MEDS: Acetaminophen-Codeine 300/30 mg Tab PO PRN (02:29)
[2017-09-01 07:10] LABS: HEMOGLOBIN 12.9 g/dL (12.0-16.0); MEAN CELL VOLUME 89.5 fl (81.0-99.0); MEAN CORPUSCULAR HEMOGLOBIN 29.1 pg (27.0-31.0); MEAN CORPUSCULAR HGB CONC 32.5 g/dL (33.0-37.0); RBC 4.43 Mil/uL (3.80-5.20); RED CELL DISTRIBUTION WIDTH 15.7 % (11.5-14.5); WHITE BLOOD COUNT 9.3 K/uL (4.8-10.8)
[2017-09-01 07:24] LABS: BLOOD UREA NITROGEN 5 mg/dl (7-17); CALCIUM 8.9 mg/dL (8.4-10.2); GFR AFRICAN-AMERICAN > 60; GFR NON-AFRICAN AMERICAN > 60
[2017-09-01] MEDS: Enoxaparin 40 mg Syringe SC SCH (08:36)
--- NOTE | 2017-09-01 09:34 | CP.PCM.PN ---
Subjective - Date & Time of Evaluation Date of Evaluation: 08/31/17 Time of Evaluation: 08:20 Objective - Vital Signs/Intake and Output Vital Signs (last 24 hours): Temp Pulse Resp BP Pulse Ox 88 F L 88 20 117/79 98 09/01/17 08:53 09/01/17 08:53 09/01/17 08:53 09/01/17 08:53 09/01/17 08:53 - Medications Medications: Current Medications Acetaminophen (Tylenol 325mg Tab) 650 mg PO Q6 PRN PRN Reason: Pain, Mild (1-3) Acetaminophen/Codeine Phosphate (Tylenol/Codeine 300 Mg/30 Mg) 1 tab PO Q6 PRN PRN Reason: for pain scale 4-10\ Last Admin: 09/01/17 02:29 Dose: 1 tab Enoxaparin Sodium (Lovenox) 40 mg SC DAILY [facility] PRN Reason: Protocol Last Admin: 09/01/17 08:36 Dose: 40 mg Lactulose (Enulose) 20 gm PO BID PRN PRN Reason: Constipation Last Admin: 08/31/17 19:51 Dose: 20 gm Ondansetron HCl (Zofran Odt) 4 mg PO Q6 PRN PRN Reason: Nausea/Vomiting Prednisone (Prednisone Tab) 40 mg PO Q24H [facility] Stop: 09/02/17 13:33 Prednisone (Prednisone Tab) 30 mg PO Q24H [facility] Stop: 09/04/17 13:33 Prednisone (Prednisone Tab) 20 mg PO Q24H [facility] Stop: 09/06/17 13:33 Prednisone (Prednisone Tab) 10 mg PO Q24H [facility] Stop: 09/08/17 13:33 Senna/Docusate Sodium (Senokot S 50 Mg-8.6 Mg) 2 tab PO HS PRN PRN Reason: Constipation Last Admin: 08/31/17 19:51 Dose: 2 tab - Labs Labs: 09/01/17 05:25 09/01/17 05:25
[2017-09-02] MEDS: Acetaminophen-Codeine 300/30 mg Tab PO PRN (01:55)
[2017-09-02] MEDS: Enoxaparin 40 mg Syringe SC SCH (09:29)
--- NOTE | 2017-09-02 20:28 | CP.PCM.PN ---
Subjective - Date & Time of Evaluation Date of Evaluation: 09/02/17 Objective - Vital Signs/Intake and Output Vital Signs (last 24 hours): Temp Pulse Resp BP Pulse Ox 98.6 F 84 20 122/78 97 09/02/17 09:36 09/02/17 09:36 09/02/17 09:36 09/02/17 09:36 09/02/17 09:36 - Medications Medications: Current Medications Acetaminophen (Tylenol 325mg Tab) 650 mg PO Q6 PRN PRN Reason: Pain, Mild (1-3) Acetaminophen/Codeine Phosphate (Tylenol/Codeine 300 Mg/30 Mg) 1 tab PO Q6 PRN PRN Reason: for pain scale 4-10\ Last Admin: 09/02/17 01:55 Dose: 1 tab Enoxaparin Sodium (Lovenox) 40 mg SC DAILY [facility] PRN Reason: Protocol Last Admin: 09/02/17 09:29 Dose: 40 mg Lactulose (Enulose) 20 gm PO BID PRN PRN Reason: Constipation Last Admin: 08/31/17 19:51 Dose: 20 gm Ondansetron HCl (Zofran Odt) 4 mg PO Q6 PRN PRN Reason: Nausea/Vomiting Prednisone (Prednisone Tab) 30 mg PO Q24H [facility] Stop: 09/04/17 13:33 Prednisone (Prednisone Tab) 20 mg PO Q24H [facility] Stop: 09/06/17 13:33 Prednisone (Prednisone Tab) 10 mg PO Q24H [facility] Stop: 09/08/17 13:33 Senna/Docusate Sodium (Senokot S 50 Mg-8.6 Mg) 2 tab PO HS PRN PRN Reason: Constipation Last Admin: 08/31/17 19:51 Dose: 2 tab - Labs Labs: 09/01/17 05:25 09/01/17 05:25
[2017-09-03] MEDS: Acetaminophen-Codeine 300/30 mg Tab PO PRN ×2 (00:47→22:33)
[2017-09-03] MEDS: Enoxaparin 40 mg Syringe SC SCH (08:38)
--- NOTE | 2017-09-03 11:14 | CP.PCM.PN ---
Subjective - Date & Time of Evaluation Date of Evaluation: 09/03/17 Time of Evaluation: 11:14 - Subjective Subjective: Ms. Armenta was seen and examined during therapy session. She is alert, oriented in all spheres. She denies any headache, lightheadedness, blurred vision, diplopia, nausea, or vomiting. She is able to follow simple commands. She is able to participate during her therapy session. She further states that she feels weird since taking prednisone, on tapering dose. She has equal hand grasp.There was no untoward events overnight. Objective - Vital Signs/Intake and Output Vital Signs (last 24 hours): Temp Pulse Resp BP Pulse Ox 98.1 F 90 20 112/68 98 09/02/17 21:30 09/02/17 21:30 09/02/17 21:30 09/02/17 21:30 09/02/17 21:30 - Medications Medications: Current Medications Acetaminophen (Tylenol 325mg Tab) 650 mg PO Q6 PRN PRN Reason: Pain, Mild (1-3) Acetaminophen/Codeine Phosphate (Tylenol/Codeine 300 Mg/30 Mg) 1 tab PO Q6 PRN PRN Reason: for pain scale 4-10\ Last Admin: 09/03/17 00:47 Dose: 1 tab Enoxaparin Sodium (Lovenox) 40 mg SC DAILY [facility] PRN Reason: Protocol Last Admin: 09/03/17 08:38 Dose: 40 mg Lactulose (Enulose) 20 gm PO BID PRN PRN Reason: Constipation Last Admin: 08/31/17 19:51 Dose: 20 gm Ondansetron HCl (Zofran Odt) 4 mg PO Q6 PRN PRN Reason: Nausea/Vomiting Prednisone (Prednisone Tab) 30 mg PO Q24H [facility] Stop: 09/04/17 13:33 Prednisone (Prednisone Tab) 20 mg PO Q24H [facility] Stop: 09/06/17 13:33 Prednisone (Prednisone Tab) 10 mg PO Q24H [facility] Stop: 09/08/17 13:33 Senna/Docusate Sodium (Senokot S 50 Mg-8.6 Mg) 2 tab PO HS PRN PRN Reason: Constipation Last Admin: 08/31/17 19:51 Dose: 2 tab - Labs Labs: 09/01/17 05:25 09/01/17 05:25 - Constitutional Appears: No Acute Distress - Head Exam Head Exam: NORMAL INSPECTION - Neurological Exam Neurological Exam: Alert, Awake, Oriented x3 Neuro motor strength exam: Left Upper Extremity: 5, Right Upper Extremity: 5, Left Lower Extremity: 5, Right Lower Extremity: 5 Additional comments: Neurological unchanged from previous examination. Assessment and Plan (1) Weakness of both lower extremities Assessment & Plan: Case discussed with Dr. Freedman, continue all current medical, physical, and occupational therapies. Recommend to follow up with Dr. Villa as an outpatient for the patient will gain if EMG/ NCS is needed. Status: Acute
--- NOTE | 2017-09-03 18:26 | CP.PCM.PN ---
Subjective - Date & Time of Evaluation Date of Evaluation: 09/03/17 Time of Evaluation: 18:25 - Subjective Subjective: Patient seen in room steroid taper made her feel a little weird and she noted some tingling in her fingers no clear benefit not consistent with spinal cord involvement no increase in tone or babinski or hoffmans continue current care Objective - Vital Signs/Intake and Output Vital Signs (last 24 hours): Temp Pulse Resp BP Pulse Ox 98.2 F 87 20 120/77 97 09/03/17 10:00 09/03/17 10:00 09/03/17 10:00 09/03/17 10:00 09/03/17 10:00 - Medications Medications: Current Medications Acetaminophen (Tylenol 325mg Tab) 650 mg PO Q6 PRN PRN Reason: Pain, Mild (1-3) Acetaminophen/Codeine Phosphate (Tylenol/Codeine 300 Mg/30 Mg) 1 tab PO Q6 PRN PRN Reason: for pain scale 4-10\ Last Admin: 09/03/17 00:47 Dose: 1 tab Enoxaparin Sodium (Lovenox) 40 mg SC DAILY [facility] PRN Reason: Protocol Last Admin: 09/03/17 08:38 Dose: 40 mg Lactulose (Enulose) 20 gm PO BID PRN PRN Reason: Constipation Last Admin: 08/31/17 19:51 Dose: 20 gm Ondansetron HCl (Zofran Odt) 4 mg PO Q6 PRN PRN Reason: Nausea/Vomiting Prednisone (Prednisone Tab) 30 mg PO Q24H [facility] Stop: 09/04/17 13:33 Last Admin: 09/03/17 12:59 Dose: 30 mg Prednisone (Prednisone Tab) 20 mg PO Q24H [facility] Stop: 09/06/17 13:33 Prednisone (Prednisone Tab) 10 mg PO Q24H [facility] Stop: 09/08/17 13:33 Senna/Docusate Sodium (Senokot S 50 Mg-8.6 Mg) 2 tab PO HS PRN PRN Reason: Constipation Last Admin: 08/31/17 19:51 Dose: 2 tab - Labs Labs: 09/01/17 05:25 09/01/17 05:25
--- NOTE | 2017-09-03 19:31 | CP.PCM.PN ---
Subjective - Date & Time of Evaluation Date of Evaluation: 09/03/17 Time of Evaluation: 19:30 Objective - Vital Signs/Intake and Output Vital Signs (last 24 hours): Temp Pulse Resp BP Pulse Ox 98.2 F 87 20 120/77 97 09/03/17 10:00 09/03/17 10:00 09/03/17 10:00 09/03/17 10:00 09/03/17 10:00 - Medications Medications: Current Medications Acetaminophen (Tylenol 325mg Tab) 650 mg PO Q6 PRN PRN Reason: Pain, Mild (1-3) Acetaminophen/Codeine Phosphate (Tylenol/Codeine 300 Mg/30 Mg) 1 tab PO Q6 PRN PRN Reason: for pain scale 4-10\ Last Admin: 09/03/17 00:47 Dose: 1 tab Enoxaparin Sodium (Lovenox) 40 mg SC DAILY [facility] PRN Reason: Protocol Last Admin: 09/03/17 08:38 Dose: 40 mg Lactulose (Enulose) 20 gm PO BID PRN PRN Reason: Constipation Last Admin: 08/31/17 19:51 Dose: 20 gm Ondansetron HCl (Zofran Odt) 4 mg PO Q6 PRN PRN Reason: Nausea/Vomiting Prednisone (Prednisone Tab) 30 mg PO Q24H [facility] Stop: 09/04/17 13:33 Last Admin: 09/03/17 12:59 Dose: 30 mg Prednisone (Prednisone Tab) 20 mg PO Q24H [facility] Stop: 09/06/17 13:33 Prednisone (Prednisone Tab) 10 mg PO Q24H [facility] Stop: 09/08/17 13:33 Senna/Docusate Sodium (Senokot S 50 Mg-8.6 Mg) 2 tab PO HS PRN PRN Reason: Constipation Last Admin: 08/31/17 19:51 Dose: 2 tab - Labs Labs: 09/01/17 05:25 09/01/17 05:25
[2017-09-04 06:21] LABS: HEMOGLOBIN 12.6 g/dL (12.0-16.0); MEAN CELL VOLUME 90.6 fl (81.0-99.0); MEAN CORPUSCULAR HEMOGLOBIN 29.3 pg (27.0-31.0); MEAN CORPUSCULAR HGB CONC 32.4 g/dL (33.0-37.0); RBC 4.29 Mil/uL (3.80-5.20); RED CELL DISTRIBUTION WIDTH 15.8 % (11.5-14.5); WHITE BLOOD COUNT 11.1 K/uL (4.8-10.8)
[2017-09-04 06:26] LABS: BLOOD UREA NITROGEN 6 mg/dl (7-17); CALCIUM 8.9 mg/dL (8.4-10.2); GFR AFRICAN-AMERICAN > 60; GFR NON-AFRICAN AMERICAN > 60
[2017-09-04] MEDS: Enoxaparin 40 mg Syringe SC SCH (08:21)
--- NOTE | 2017-09-04 13:18 | PSY.TMCNF ---
Nursing - Vital Signs Vital Signs (Last 8 hours): Vital Signs 09/04/17 07:41 Temperature 97.7 F Pulse Rate 84 Respiratory 18 Rate Blood Pressure 131/83 O2 Sat by Pulse 97 Oximetry Pain: 0 - Precautions: Precautions: Fall Prevention - Medications/Other Issues Comment: Pt at moderate nutritional risk. goals: 1. Improve PO intake to greater than 75% at mealtimes(partially met, cotinue). 2. Report BM regularity at next nutrition reassessment(met, continue). Follow-up due on 09/06/2017 - Consults Comment: DR Bermudez,Dr Freedman - Toileting Toileting: Maximal Assistance - Bladder Management Bladder Pattern: Normal Voiding Method: Toilet, Bedpan - Bowel Management Bowel Pattern: Constipated Bowel Management: Maximal Assistance - Transfers Transfers: Maximal Assistance - ADL's ADL's: Moderate Assistance - Pain Management Comments: denies any pain tylenol prn - Patient/Family Teaching Comments: safety/fall precaution ,medication teaching and importance of therapy - Goals/Time Frame Comments: as per multidiciplinary plan of care Physical Therapy - Bed Mobility Bed Mobility: Supervision, Verbal Cues - Transfers Wheelchair to Mat: Verbal Cues, Contact Guard, Minimal Assistance Sit to Stand: Supervision, Verbal Cues - Ambulation Level of Assistance: Minimal Assistance Distance (ft.): 125 Assistive Devices: N/A Orthoses: B ankle air-casts Comment: -125 feet x 6 with BUE GEAR GENERATOR SET UP OPERATOR with progressively reduced support provided by therapists on either side. -ataxic pattern continues to remain present but much improved ankle control and improved LE coordination. -continued emphasis on patient improving foot placement and wider base of support with improved placement /control during level surface mobility - Stair Negotiation Stairs: Level of Assistance: Minimal Assistance, Moderate Assistance Number of Stairs: 8 Stairs: Assistive Devices: Left Handrail, Right Handrail Comment: 8 6inch steps with B rails, ascent forwards, descent backwards - Standing Balance Static Stand: Contact Guard Assist Dynamic Stand: Minimal Assistance - Pain Pain (assessed during therapy session): 5 Comment: -fluctuating reports of pain/discomfort. -most recently reports burning in B hands, feet and LE and attributes this to the tapering dosage of steroids - Insight/Carryover Insight/Carryover: Fair - Patient/Family Education Comment: safety, therapy schedule, therapy goals, POC, safety, mobility, use of call groves - Assessment/Plan Assessment: Patient continues to present with inconsistent findings. Patient has intact strength and range of motion in the BLEs but continues to present with impaired mobility with abnormal movement patterns. PT working with patient utilizing distraction techniques as well as techniques to reduce assistance without patient knowing to improve active participation in tasks. Patient continues to require hands on assistance (min to mod with at times max A pending participation in task and attention) for with safety for all tasks. PT recommends home discharge with assistance for all mobility and tasks at a WC level with home PT services. - Goals Timeframe: 7 days Goals: -10 6inch steps with B rails with CG. -S with WC x 150 feet. -min A of 1 with gait x 200 feet with RW. -mod I for sit to/from stand. -CG for SPT. - supervision all bed/mat mobility - Provider Therapist: Aliyah Elizondo PT, DPT License Number: [id number] Occupational Therapy - Arousal/Attention/Orientation Patient Orientation: Person, Place, Time, Appropriate to Age, Appropriate to Situation - ADL/IADL Self Feeding: Set-up Help Grooming: Supervision, Set-up Help Bathing-Upper Extremity: Verbal Cues, Set-up Help, Minimal Assistance Bathing-Lower Extremity: Verbal Cues, Set-up Help, Minimal Assistance Dressing-Upper Extremity: Independent, Set-up Help Dressing-Lower Extremity: Supervision, Verbal Cues, Set-up Help, Contact Guard Comment: shower seated with hand held shower - Sitting Balance Static Sitting: Independent with upper extremity support Dynamic Sitting: Requires supervision Comment: unsupported at edge of bed - Transfers Wheelchair to Bed Transfers: Verbal Cues, Set-up Help, Contact Guard Toilet Transfers: Verbal Cues, Set-up Help, Contact Guard Comment: shower transfers: mod-max assist and verbal cues yesterday - Wheelchair Management Level of Assistance: Modified Independent Distance (ft.): 150 - Upper Extremity Status Right Upper Extremity Comment: AROM is WFLS; strength 4/5. R production designer strength: 20 lbs. R tripod pinch: 6-lbs. Impaired gross/fine motor coordination. *9 hole test results:1.30.58 mins, moderately impaired(masured 09/04/17) Left Upper Extremity Comment: AROM is WFLS, strength 4/5. L production designer strength: 15- lbs. L tripod pinch: 6-lbs. impaired gross/fine motor coordination,. *9 Hole test result: 2.08.32 mins(measured on 09/04/17) - Pain Pain (assessed during therapy session): 5 Comment: -fluctuating reports of pain/discomfort. -most recently reports burning in B hands, feet and LE and attributes this to the tapering dosage of steroids - Insight/Carryover Insight/Carryover: Fair - Patient/Family Education Comment: safety, therapy schedule, therapy goals, POC, safety, mobility, use of call groves - Assessment/Plan Assessment: Patient continues to present with inconsistent findings. Patient has intact strength and range of motion in the BLEs but continues to present with impaired mobility with abnormal movement patterns. PT working with patient utilizing distraction techniques as well as techniques to reduce assistance without patient knowing to improve active participation in tasks. Patient continues to require hands on assistance (min to mod with at times max A pending participation in task and attention) for with safety for all tasks. PT recommends home discharge with assistance for all mobility and tasks at a WC level with home PT services. - Goals Timeframe: 7 days Goals: -10 6inch steps with B rails with CG. -S with WC x 150 feet. -min A of 1 with gait x 200 feet with RW. -mod I for sit to/from stand. -CG for SPT. - supervision all bed/mat mobility - Provider Therapist: Princess Watts OTR/L License Number: [id number] Speech Therapy - Plan Assessment: Patient continues to present with inconsistent findings. Patient has intact strength and range of motion in the BLEs but continues to present with impaired mobility with abnormal movement patterns. PT working with patient utilizing distraction techniques as well as techniques to reduce assistance without patient knowing to improve active participation in tasks. Patient continues to require hands on assistance (min to mod with at times max A pending participation in task and attention) for with safety for all tasks. PT recommends home discharge with assistance for all mobility and tasks at a WC level with home PT services. Recreational Therapy - Participation Participation: Participates in Individual and/or Group Sessions - Attendance Attendance: 3-5 times per week - Activities Leisure Activities: Television - Socialization Level of Socialization: Initiates/interacts freely with care givers and peer - Assessment Assessment/Plan: Patient continues to present with inconsistent findings. Patient has intact strength and range of motion in the BLEs but continues to present with impaired mobility with abnormal movement patterns. PT working with patient utilizing distraction techniques as well as techniques to reduce assistance without patient knowing to improve active participation in tasks. Patient continues to require hands on assistance (min to mod with at times max A pending participation in task and attention) for with safety for all tasks. PT recommends home discharge with assistance for all mobility and tasks at a level with home PT services. - Provider Therapist: Wendy Shelton, ANIMAL CARE ATTENDANT #[id number] Nutrition - Current Diet Current Diet/ Supplement/ Feedings: Regular diet - Appetite Percent Meal Consumed: 75-100% - Comments Comments: safety/fall precaution ,medication teaching and importance of therapy - Assessment/Goals/Time Frame Assessment/Goals/Time Frame: Pt at moderate nutritional risk. goals: 1. Improve PO intake to greater than 75% at mealtimes(partially met, cotinue). 2. Report BM regularity at next nutrition reassessment(met, continue). Follow-up due on 09/06/2017 - Provider Provider: Shi Bella RD Case Management - Psychosocial Assessment Support Systems: Melinda (mother)- [phone] Psychological Interventions/Needs: Patient is alert and oriented x3 and able to verbalize needs. 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 Patient will likely require 24 hour supervision at home. Patient demonstrates impaired insight into deficits and impaired insight into realistic mobility goals Patient/Family Meeting: CM met with patient and rehab team Intervention/Goal/Outcome:: 1. Goal and Plan: 24 hour supervision at wheelchair level, Patient to be referred to [facility] for home therapy, CM to explore [facility] if patient not safe to return home. 2. continued stay auth, LAD: 08/28, updates to be faxed today. 3. Tentative discharge date: 09/05. 4. continued encouragement and emotional support. - Discharge Plan Discharge Plan: Home with services, Subacute care - Provider Provider: RONNY Rogers, RADIOACTIVITY TECHNICIAN License Number: [id number] Rehabilitation Plan - Treatment Plan Treatment Plan: Physical Therapy, Occupational Therapy, Dietary, Patient/Family Education - Discharge Plan Estimated Date of Discharge: 09/05/17 Discharge to: Home
--- NOTE | 2017-09-04 13:37 | CP.PCM.PN ---
Subjective - Date & Time of Evaluation Date of Evaluation: 09/04/17 Time of Evaluation: 13:35 - Subjective Subjective: Patient seen in room legs up on the bed discussed in team conference and there is clear inconsistencies in her function and examination and how certain tasks she can do but then can't do another one that is easier or similar in functional demand set for d/c home tomorrow all DME are being arranged and home help as well continue current care Objective - Vital Signs/Intake and Output Vital Signs (last 24 hours): Temp Pulse Resp BP Pulse Ox 97.7 F 84 18 131/83 97 09/04/17 07:41 09/04/17 07:41 09/04/17 07:41 09/04/17 07:41 09/04/17 07:41 - Medications Medications: Current Medications Acetaminophen (Tylenol 325mg Tab) 650 mg PO Q6 PRN PRN Reason: Pain, Mild (1-3) Acetaminophen/Codeine Phosphate (Tylenol/Codeine 300 Mg/30 Mg) 1 tab PO Q6 PRN PRN Reason: for pain scale 4-10\ Last Admin: 09/03/17 22:33 Dose: 1 tab Enoxaparin Sodium (Lovenox) 40 mg SC DAILY ALVIN PRN Reason: Protocol Last Admin: 09/04/17 08:21 Dose: 40 mg Lactulose (Enulose) 20 gm PO BID PRN PRN Reason: Constipation Last Admin: 08/31/17 19:51 Dose: 20 gm Ondansetron HCl (Zofran Odt) 4 mg PO Q6 PRN PRN Reason: Nausea/Vomiting Prednisone (Prednisone Tab) 20 mg PO Q24H ALVIN Stop: 09/06/17 13:33 Prednisone (Prednisone Tab) 10 mg PO Q24H ALVIN Stop: 09/08/17 13:33 Senna/Docusate Sodium (Senokot S 50 Mg-8.6 Mg) 2 tab PO HS PRN PRN Reason: Constipation Last Admin: 08/31/17 19:51 Dose: 2 tab - Labs Labs: 09/04/17 05:30 09/04/17 05:30
[2017-09-04 20:40] VITALS: RESP 20
--- NOTE | 2017-09-04 22:04 | CP.PCM.PN ---
Subjective - Date & Time of Evaluation Date of Evaluation: 09/04/17 Time of Evaluation: 17:00 Objective - Vital Signs/Intake and Output Vital Signs (last 24 hours): Temp Pulse Resp BP Pulse Ox 98.2 F 101 H 20 126/85 98 09/04/17 20:39 09/04/17 20:39 09/04/17 20:39 09/04/17 20:39 09/04/17 20:39 - Medications Medications: Current Medications Acetaminophen (Tylenol 325mg Tab) 650 mg PO Q6 PRN PRN Reason: Pain, Mild (1-3) Acetaminophen/Codeine Phosphate (Tylenol/Codeine 300 Mg/30 Mg) 1 tab PO Q6 PRN PRN Reason: for pain scale 4-10\ Last Admin: 09/03/17 22:33 Dose: 1 tab Enoxaparin Sodium (Lovenox) 40 mg SC DAILY ALVIN PRN Reason: Protocol Last Admin: 09/04/17 08:21 Dose: 40 mg Lactulose (Enulose) 20 gm PO BID PRN PRN Reason: Constipation Last Admin: 08/31/17 19:51 Dose: 20 gm Ondansetron HCl (Zofran Odt) 4 mg PO Q6 PRN PRN Reason: Nausea/Vomiting Prednisone (Prednisone Tab) 20 mg PO Q24H ALVIN Stop: 09/06/17 13:33 Prednisone (Prednisone Tab) 10 mg PO Q24H ALVIN Stop: 09/08/17 13:33 Senna/Docusate Sodium (Senokot S 50 Mg-8.6 Mg) 2 tab PO HS PRN PRN Reason: Constipation Last Admin: 08/31/17 19:51 Dose: 2 tab - Labs Labs: 09/04/17 05:30 09/04/17 05:30
[2017-09-04] MEDS: Acetaminophen-Codeine 300/30 mg Tab PO PRN (23:27)
[2017-09-05 07:34] VITALS: BP 138/90; PULSE 90; TEMP 98.1; O2SAT 99
[2017-09-05] MEDS: Acetaminophen-Codeine 300/30 mg Tab PO PRN (08:55)
[2017-09-05] MEDS: Enoxaparin 40 mg Syringe SC SCH (08:57)
[2017-09-05] MEDS: Docusate-Senna 50 mg-8.6 mg Tab PO PRN (09:00)
--- NOTE | 2017-09-05 11:41 | CP.PCM.PN ---
Subjective - Date & Time of Evaluation Date of Evaluation: 09/04/17 Time of Evaluation: 13:00 - Subjective Subjective: Ms. Armenta was seen and examined today while she sat in a wheelchair. She was able to complete a fine motor task. She admitted to feeling better with the steroids, but feels a little weaker since tapering. Overall, she has made improvement with PT. Objective - Vital Signs/Intake and Output Vital Signs (last 24 hours): Temp Pulse Resp BP Pulse Ox 98.1 F 90 20 138/90 99 09/05/17 07:33 09/05/17 07:33 09/05/17 07:33 09/05/17 07:33 09/05/17 07:33 - Medications Medications: Current Medications Acetaminophen (Tylenol 325mg Tab) 650 mg PO Q6 PRN PRN Reason: Pain, Mild (1-3) Acetaminophen/Codeine Phosphate (Tylenol/Codeine 300 Mg/30 Mg) 1 tab PO Q6 PRN PRN Reason: for pain scale 4-10\ Last Admin: 09/05/17 08:55 Dose: 1 tab Lactulose (Enulose) 20 gm PO BID PRN PRN Reason: Constipation Last Admin: 09/05/17 08:58 Dose: 20 gm Ondansetron HCl (Zofran Odt) 4 mg PO Q6 PRN PRN Reason: Nausea/Vomiting Prednisone (Prednisone Tab) 20 mg PO Q24H ALVIN Stop: 09/06/17 13:33 Prednisone (Prednisone Tab) 10 mg PO Q24H ALVIN Stop: 09/08/17 13:33 Senna/Docusate Sodium (Senokot S 50 Mg-8.6 Mg) 2 tab PO HS PRN PRN Reason: Constipation Last Admin: 09/05/17 09:00 Dose: 2 tab - Labs Labs: 09/04/17 05:30 09/04/17 05:30 - Neurological Exam Neurological Exam: Abnormal Gait, Awake, CN II-XII Intact, Oriented x3, Reflexes Normal Neuro motor strength exam: Left Upper Extremity: 4, Right Upper Extremity: 4, Left Lower Extremity: 4, Right Lower Extremity: 4 Assessment and Plan (1) Back pain, acute Status: Chronic (2) Cervical disc herniation Assessment & Plan: Continue current therapeutic plan per PT and follow up with neurosurgery for imaging. Status: Chronic (3) Spinal stenosis Status: Chronic (4) Weakness of both lower extremities Status: Resolved
--- NOTE | 2017-09-05 12:29 | CP.PCM.PN ---
Subjective - Date & Time of Evaluation Date of Evaluation: 09/05/17 Time of Evaluation: 12:25 - Subjective Subjective: Ms. Armenta was seen and examined at the bedside. She is alert, oriented in all spheres. She denies any pain or discomfort. She is able to play with her phone without any problem. She further states that she is better with nobody observing her, she gets conscious when somebody observes her. She further verbalizes that she is going home today.There was no untoward events overnight. Objective - Vital Signs/Intake and Output Vital Signs (last 24 hours): Temp Pulse Resp BP Pulse Ox 98.1 F 90 20 138/90 99 09/05/17 07:33 09/05/17 07:33 09/05/17 07:33 09/05/17 07:33 09/05/17 07:33 - Medications Medications: Current Medications Acetaminophen (Tylenol 325mg Tab) 650 mg PO Q6 PRN PRN Reason: Pain, Mild (1-3) Acetaminophen/Codeine Phosphate (Tylenol/Codeine 300 Mg/30 Mg) 1 tab PO Q6 PRN PRN Reason: for pain scale 4-10\ Last Admin: 09/05/17 08:55 Dose: 1 tab Lactulose (Enulose) 20 gm PO BID PRN PRN Reason: Constipation Last Admin: 09/05/17 08:58 Dose: 20 gm Ondansetron HCl (Zofran Odt) 4 mg PO Q6 PRN PRN Reason: Nausea/Vomiting Prednisone (Prednisone Tab) 20 mg PO Q24H [facility] Stop: 09/06/17 13:33 Prednisone (Prednisone Tab) 10 mg PO Q24H ALVIN Stop: 09/08/17 13:33 Senna/Docusate Sodium (Senokot S 50 Mg-8.6 Mg) 2 tab PO HS PRN PRN Reason: Constipation Last Admin: 09/05/17 09:00 Dose: 2 tab - Labs Labs: 09/04/17 05:30 09/04/17 05:30 - Constitutional Appears: No Acute Distress - Head Exam Head Exam: NORMAL INSPECTION - Neurological Exam Neurological Exam: Alert, Awake, Oriented x3 Neuro motor strength exam: Left Upper Extremity: 5, Right Upper Extremity: 5, Left Lower Extremity: 5, Right Lower Extremity: 5 Additional comments: Neurological unchanged from previous examination. Assessment and Plan (1) Cervical disc herniation Assessment & Plan: Case discussed with Dr. Freedman, continue all current medical regimen, recommend to follow up with a neurosurgeon for repeat MRI to further evaluation and monitoring. Neurology is signing off from this case. Status: Chronic
--- NOTE | 2017-09-05 20:15 | CP.PCM.DIS ---
Provider - Provider Date of Admission: 08/24/17 19:57 Attending physician: Cj Alberto MD Time Spent in preparation of Discharge (in minutes): 25 Hospital Course - Lab Results Lab Results: Most Recent Lab Values WBC 11.1 K/uL (4.8-10.8) H 09/04/17 05:30 RBC 4.29 Mil/uL (3.80-5.20) 09/04/17 05:30 Hgb 12.6 g/dL (12.0-16.0) 09/04/17 05:30 Hct 38.9 % (34.0-47.0) 09/04/17 05:30 MCV 90.6 fl (81.0-99.0) 09/04/17 05:30 MCH 29.3 pg (27.0-31.0) 09/04/17 05:30 MCHC 32.4 g/dL (33.0-37.0) L 09/04/17 05:30 RDW 15.8 % (11.5-14.5) H 09/04/17 05:30 Plt Count 327 K/uL (130-400) 09/04/17 05:30 Sodium 140 mmol/l (132-148) 09/04/17 05:30 Potassium 4.1 MMOL/L (3.6-5.0) 09/04/17 05:30 Chloride 101 mmol/L (98-107) 09/04/17 05:30 Carbon Dioxide 30 mmol/L (22-30) 09/04/17 05:30 Anion Gap 13 (10-20) 09/04/17 05:30 BUN 6 mg/dl (7-17) L 09/04/17 05:30 Creatinine 0.5 mg/dl (0.7-1.2) L 09/04/17 05:30 Est GFR ( Amer) > 60 09/04/17 05:30 Est GFR (Non-Af Amer) > 60 09/04/17 05:30 Random Glucose 88 mg/dL (65-105) 09/04/17 05:30 Calcium 8.9 mg/dL (8.4-10.2) 09/04/17 05:30 Discharge Exam - Head Exam Head Exam: NORMAL INSPECTION Discharge Plan - Discharge Medications Prescriptions: Acetaminophen/Codeine [Tylenol/Codeine 300 MG/30 MG] 1 tab PO Q6 PRN #20 tab PRN Reason: for pain scale 4-10\ Acetaminophen/Codeine [Tylenol/Codeine 300 MG/30 MG] 1 tab PO Q6H PRN #20 tab PRN Reason: Pain, Moderate (4-7) - Follow Up Plan Condition: GOOD Disposition: HOME/ ROUTINE Instructions: Low Back Pain (DC), Herniated Disc (DC), Upper Back Pain (DC)
== END 2017-09-05 19:15 | disposition home or self-care (01) | DRG 243 ==
PROVIDERS: ADMIT Internal Medicine; ATTEND Internal Medicine
DX: M50.222 Other cervical disc displacement at C5-C6 level (principal); K59.00 Constipation, unspecified; Z91.81 History of falling; M48.00 Spinal stenosis, site unspecified; R53.1 Weakness

== ENCOUNTER 2018-10-05 18:42 | Inpatient (IN) | payer MEDICAID ==
[2018-10-05 18:47] VITALS: BMI 30.2
--- NOTE | 2018-10-05 19:55 | ED PDOC ---
HPI: Back Time Seen by Provider: 10/05/18 19:22 Chief Complaint (Nursing): Back Pain Chief Complaint (Provider): Neck Pain History Per: Patient History/Exam Limitations: no limitations Onset/Duration Of Symptoms: Days Additional Complaint(s): 37 year old female presents to ED with constant neck pain radiating into head and lower back x4 days. She spoke with Dr Lindsey by phone who told her to come in to ED today. Patient also complains of headache and feels unbalanced while walking x 1 week. She states she has a herniated disc and has not taken any medication for the pain. Patient is allergic to amoxicillin. PMD: none provided Past Medical History Reviewed: Historical Data, Nursing Documentation, Vital Signs Vital Signs: Last Vital Signs Temp 98.2 F 10/05/18 19:36 Pulse 79 10/05/18 19:36 Resp 15 10/05/18 19:36 BP 132/78 10/05/18 19:36 Pulse Ox 98 10/05/18 19:36 Primary Care Provider: FAMILY PROVIDER,NO - Medical History PMH: No Chronic Diseases Denies: Chronic Kidney Disease - Surgical History Surgical History: No Surg Hx - Family History Family History: States: Unknown Family Hx - Social History Current smoker - smoking cessation education provided: No Alcohol: None Drugs: Denies - Home Medications Home Medications: Ambulatory Orders Medication Instructions Recorded Acetaminophen/Codeine 1 tab PO Q6 PRN #20 tab 09/05/17 [Tylenol/Codeine 300 MG/30 MG] Acetaminophen/Codeine 1 tab PO Q6H PRN #20 tab 09/05/17 [Tylenol/Codeine 300 MG/30 MG] - Allergies Allergies/Adverse Reactions: Allergies Allergy/AdvReac Type Severity Reaction Status Date / Time amoxicillin Allergy SHORTNESS Verified 08/24/17 20:52 OF BREATH Review of Systems ROS Statement: Except As Marked, All Systems Reviewed And Found Negative Musculoskeletal: Positive for: Neck Pain, Back Pain Neurological: Positive for: Headache, Other (difficulty walking) Physical Exam - Reviewed Nursing Documentation Reviewed: Yes Vital Signs Reviewed: Yes - Physical Exam Appears: Positive for: No Acute Distress Head Exam: Positive for: ATRAUMATIC, NORMAL INSPECTION, NORMOCEPHALIC Skin: Positive for: Normal Color, Warm, Dry Eye Exam: Positive for: EOMI, Normal appearance, PERRL ENT: Positive for: Normal ENT Inspection Neck: Positive for: Normal, Painless ROM, Supple Cardiovascular/Chest: Positive for: Regular Rate, Rhythm. Negative for: Murmur Respiratory: Positive for: Normal Breath Sounds. Negative for: Respiratory Distress Gastrointestinal/Abdominal: Positive for: Normal Exam, Soft. Negative for: Tenderness Back: Positive for: Normal Inspection. Negative for: L CVA Tenderness, R CVA Tenderness, Vertebral Tenderness Extremity: Positive for: Normal ROM. Negative for: Tenderness, Deformity Neurological/Psych: Positive for: Awake, Alert, Oriented (x3). Negative for: Motor/Sensory Deficits - Laboratory Results Result Diagrams: 10/05/18 20:25 10/05/18 20:25 - ECG O2 Sat by Pulse Oximetry: 98 (RA) Pulse Ox Interpretation: Normal Medical Decision Making Medical Decision Making: Time: 1939 Initial Impression: headache, neck pain, acute chronic lower extremity weakness bilaterally Initial Plan: --Labs --CT [address] Lindsey [address] Head Findings: The ventricles and sulci are symmetric bilaterally. There is no evidence of acute hemorrhage or infarct. There is no midline shift, mass effect, or extra-axial fluid collection. The osseous structures are unremarkable. The visualized paranasal sinuses and mastoid air cells are clear. Impression: Negative study. 2129 CT Cervical Findings: There is reversal the normal cervical curvature. Calcification of the posterior longitudinal ligament is noted at multiple levels, most prominent at C3 and C4. No fractures or dislocations are demonstrated. The odontoid process is intact. Intervertebral disc spaces are well-maintained. There is no evidence of facet subluxation. The neural foramen appear grossly patent. The cervical cranial junction is intact. There are central disc osteophyte complex is noted at C3/C4, C4/C5, and C5/C6. The surrounding soft tissues are within normal limits. Impression:1. No acute fracture or traumatic injury. 2. Reversal normal curvature of the cervical spine likely secondary spondylosis. 3. Disc osteophyte complexes with central disc bulging, with associated ligamentous calcifications, at C3/C4, C4/C5, and C5/C6. No evidence of central canal stenosis. If there is further clinical concern, MRI could be considered. Scribe Attestation: Documented by Sandip Paul acting as a scribe for Sofie Lujan MD. Provider Scribe Attestation: All medical record entries made by the Scribe were at my direction and personall y dictated by me. I have reviewed the chart and agree that the record accurately reflects my personal performance of the history, physical exam, medical decision making, and the department course for this patient. I have also personally directed, reviewed, and agree with the discharge instructions and disposition. Disposition - Clinical Impression Clinical Impression: Unsteady gait, Headache, Neck pain - Patient ED Disposition Is Patient to be Admitted: Yes - Disposition Disposition Time: 22:02 Condition: STABLE Forms: [employer] ([place]) - Pt Status Changed To: Hospital Disposition Of: Inpatient - Admit Certification Admit to Inpatient:: After my assessment, the patient will require hospitalization for at least two midnights. This is because of the severity of symptoms shown, intensity of services needed, and/or the medical risk in this patient being treated as an outpatient. - POA Present On Arrival: None
[2018-10-05] MEDS ORDERED: Sodium Chloride 0.9% 1,000 ML IV STA (20:20)
[2018-10-05 20:36] LABS: BASO % 0.9 % (0.0-2.0); EOS % 0.1 % (0.0-4.0); HEMOGLOBIN 13.3 g/dL (12.0-16.0); LYMPH % 37.1 % (20.0-40.0); MEAN CORPUSCULAR HEMOGLOBIN 38.2 pg (27.0-31.0); MEAN CORPUSCULAR HGB CONC 33.7 g/dL (33.0-37.0); MEAN PLATELET VOLUME 7.1 fl (7.2-11.7); MONO # 0.3 K/uL (0.0-0.8); MONO % 5.3 % (0.0-10.0); NEUT % 56.6 % (50.0-75.0); NRBC % 0.2 % (0.0-0.0); RBC 3.48 Mil/uL (3.80-5.20); RED CELL DISTRIBUTION WIDTH 17.3 % (11.5-14.5); WHITE BLOOD COUNT 5.3 K/uL (4.8-10.8)
[2018-10-05 20:45] LABS: ALB/GLOB RATIO 1.3 (1.0-2.1); ALT/SGPT 17 U/L (9-52); AST/SGOT 18 U/L (14-36); BLOOD UREA NITROGEN 10 mg/dl (7-17); CALCIUM 8.9 mg/dL (8.4-10.2); GFR NON-AFRICAN AMERICAN > 60
[2018-10-05 21:04] LABS: INR 1.1; PROTHROMBIN TIME 12.3 Seconds (9.8-13.1)
[2018-10-05 21:07] LABS: PARTIAL THROMBOPLASTIN TIME 33.6 Seconds (25.6-37.1)
[2018-10-05 22:19] LABS: MEAN CELL VOLUME 113.3 fl (81.0-99.0)
[2018-10-05 22:57] LABS: SQUAMOUS EPITHIAL 7 /hpf (0-5); URINE BACTERIA FEW (<OCC); URINE BILIRUBIN MODERATE (NEGATIVE); URINE BLOOD SMALL (NEGATIVE); URINE CLARITY CLOUDY (Clear); URINE COLOR AMBER (YELLOW); URINE GLUCOSE (UA) NEG (NEGATIVE); URINE LEUKOCYTE ESTERASE MOD Leu/uL (Negative); URINE PROTEIN 100 mg/dL (NEGATIVE)
--- NOTE | 2018-10-06 09:21 | RAD ---
Date of service: 10/05/2018 HISTORY: GODINEZ COMPARISON: Frontal chest radiograph 08/16/2017. TECHNIQUE: 1 view obtained. FINDINGS: LUNGS: No active pulmonary disease. PLEURA: No significant pleural effusion identified, no pneumothorax apparent. CARDIOVASCULAR: No aortic atherosclerotic calcification present. Normal cardiac size. No pulmonary vascular congestion. OSSEOUS STRUCTURES: No significant abnormalities. VISUALIZED UPPER ABDOMEN: Normal. OTHER FINDINGS: Note is made of linear dense wire like radiodensity at the inferior chest at the midline which may be artifact. IMPRESSION: No acute cardiopulmonary disease or significant interval change overall, however, a linear radiodensity is seen at the midline inferior chest and upper abdomen of uncertain origin but may be artifactual. Clinically correlate further.
--- NOTE | 2018-10-06 10:46 | CT ---
Date of service: 10/05/2018 PROCEDURE: CT HEAD WITHOUT CONTRAST. HISTORY: Headache COMPARISON: Brain MRI with and without contrast 08/18/2017. TECHNIQUE: Axial computed tomography images were obtained through the head/brain without intravenous contrast. Radiation dose: Total exam DLP = 999.56 mGy-cm. This CT exam was performed using one or more of the following dose reduction techniques: Automated exposure control, adjustment of the mA and/or kV according to patient size, and/or use of iterative reconstruction technique. FINDINGS: HEMORRHAGE: No intracranial hemorrhage. BRAIN: Normal gamino-white matter differentiation and density are appreciated throughout the cerebrum and cerebellum with the brainstem appearing unremarkable as well. There is no mass effect. There is no suspicious extra-axial fluid collection and the midline brain anatomy appears diffusely unremarkable. VENTRICLES: Unremarkable. No hydrocephalus. CALVARIUM: Unremarkable. PARANASAL SINUSES: Unremarkable as visualized. No significant inflammatory changes. MASTOID AIR CELLS: Unremarkable as visualized. No inflammatory changes. OTHER FINDINGS: None. IMPRESSION: Unremarkable unenhanced CT of the Head. Concordant preliminary report from Maribel, 10/05/2018, 9:30 p.m..
--- NOTE | 2018-10-06 11:25 | CARD ---
APPROVED REPORT Date of service: 10/05/2018 EKG Measurement Heart [id number] <Conclusion> Normal sinus rhythm Normal ECG
--- NOTE | 2018-10-06 11:56 | CT ---
Date of service: 10/05/2018 PROCEDURE: CT Cervical Spine without contrast HISTORY: Neck pain COMPARISON: None available. TECHNIQUE: Axial computed tomography images were obtained of the cervical spine without the use of intravenous contrast. Coronal and sagittal reformatted images were created and reviewed. Radiation dose: Total exam DLP = 347.69 mGy-cm. This CT exam was performed using one or more of the following dose reduction techniques: Automated exposure control, adjustment of the mA and/or kV according to patient size, and/or use of iterative reconstruction technique. FINDINGS: VERTEBRAE: No fracture. There is a limited reversal of cervical curvature. C1 arch is intact C1-2 articulation unremarkable swells craniocervical junction. The odontoid process appears intact. No destructive bony lesion. DISCS/SPINAL CANAL/NEURAL FORAMINA: No significant central canal (at the intervertebral disc levels) or neural foraminal stenosis. There discontinuous ossification of posterior longitudinal ligament posterior to the C3, C4, C5 and C6 vertebral bodies, seen worst at C3 and C4 which encroach or potentially impinge ventral nerve roots without significant generalized central canal stenosis. Discs heights are grossly preserved. PARASPINAL SOFT TISSUES: Unremarkable. OTHER FINDINGS: Mild thyromegaly without definitive appreciable mass. IMPRESSION: 1. No acute fracture or spondylolisthesis identified. 2. Mild reversal of cervical curvature. 3. Discontinuous ossification of the posterior longitudinal ligament encroaches if not impinges ventral nerve roots at C3 and C4 and is minimal at C5 and C6. No generalized central canal stenosis at any of these levels. 4. Mild thyromegaly without definitive appreciable mass. Recommend follow-up elective thyroid ultrasound. Preliminary report provided by Maribel, 10/05/2018, 9:30 p.m.. Discordant regarding impression 4. Findings discussed with SHANTHI Tabares with written down and read back verification 10/06/2018, 11:50 a.m..
--- NOTE | 2018-10-06 13:33 | CT ---
Date of service: 10/06/2018 PROCEDURE: CT Lumbar Spine without contrast HISTORY: pain, unsteady gait COMPARISON: None available. TECHNIQUE: Axial computed tomography images were obtained of the lumbar spine without the use of intravenous contrast. Coronal and sagittal reformatted images were created and reviewed. Radiation dose: Total exam DLP = 865.96 mGy-cm. This CT exam was performed using one or more of the following dose reduction techniques: Automated exposure control, adjustment of the mA and/or kV according to patient size, and/or use of iterative reconstruction technique. FINDINGS: VERTEBRAE: Multilevel spondylosis identified anteriorly on a diffuse basis throughout the thoraco lumbar spine. No fracture. Normal alignment. DISCS/SPINAL CANAL/NEURAL FORAMINA: L1-2: Limited disc bulging is appreciated posteriorly encroaching the bilateral lateral recesses symmetrically without significant central canal stenosis. No significant neural foraminal stenosis bilaterally. L2-3: Mild posterior disc bulging combines with facet arthropathy to cause mild central canal stenosis. Borderline bilateral neural foraminal stenosis on a degenerative basis. L3-4: Limited disc bulging combines with facet joint degenerative changes causing mild central canal stenosis with borderline bilateral degenerative neural foraminal stenoses present. L4-5: Moderate central stenosis is appreciated due to combined posterior disc bulge and facet joint degenerative changes symmetrically. Borderline bilateral neural foraminal stenosis is appreciated on a degenerative basis. L5-S1: Minimal disc bulging encroaches the lateral recesses as well as facet joint degenerative changes without causing generalized central canal stenosis. No neural foraminal stenosis bilaterally. PARASPINAL SOFT TISSUES: Unremarkable. OTHER FINDINGS: None. IMPRESSION: Multilevel mild central canal stenoses are caused by generalized disc bulging combining with facet joint degenerative changes at L2-3 and L3-4 with moderate degenerative central canal stenosis identified at L4-5. No gross disc herniation is appreciable, however, MRI is more sensitive in evaluation of intervertebral discs than CT.
--- NOTE | 2018-10-06 13:41 | US ---
Date of service: 10/06/2018 HISTORY: Neck pain TECHNIQUE: Sonographic evaluation of the thyroid gland. COMPARISON: FINDINGS: RIGHT LOBE: Measures 7.1 x 1.9 x 2.7 cm. Overall echotexture is mildly heterogeneous the solitary hypoechoic lesion identified at the lower pole reflecting a tiny cyst or nodule measuring 3 mm greatest dimension. Mildly increased blood flow is appreciated throughout the right lobe. Nodules: None LEFT LOBE: Measures 6.7 x 1.8 x 2.5 cm. Similar to the right side, overall echotexture is mildly heterogeneous but without cystic or solid lesion appreciable. Mildly increased color Doppler blood flow is appreciated at the left lobe as well. Nodules: None ISTHMUS: Measures 0.7 cm. Heterogeneous echotexture with unremarkable appearing color Doppler blood flow pattern. Nodules: None OTHER FINDINGS: None . IMPRESSION: Thyromegaly is identified with both lobes enlarged, right greater than left. A 3 mm hypoechoic nodule is seen at the lower pole right lobe too small to characterize but likely reflecting a small cyst or possible nodule. Increased blood flow seen throughout both lobes. Consider potential nuclear thyroid scan with uptake for added characterization of the gland.
--- NOTE | 2018-10-06 14:39 | CP.PCM.CON ---
History of Present Illness - History of Present Illness History of Present Illness: Neurology consult dictated. Miss Armenta is a patient of Dr. Esposito who is here for exacerbation of her chronic cervical radiculopathy.She states that she has had severe holocephalic pain, 10/.10, a feeling of her throat being crushed and an inability to walk for 3 days, worsened yesterday. Yesterday, she stated that she couldnt walk, so I advised admission. MRI C spine is ordered, and today, patient has normal strength in her legs but is unable to pull to stand. Her neurological exam is normal, with no long tract signs. SHe is, however, in severe pain. Plan: 1. IV decadron 8 mg now and q day. 2. PPI 3. MRI Cervical spine with and without ling. Dr. zelaya NEurology Past Patient History - Infectious Disease Hx of Infectious Diseases: None - Past Medical History & Family History Past Medical History?: Yes - Past Social History Smoking Status: Never Smoked - CARDIAC Hx Cardiac Disorders: No - PULMONARY Hx Respiratory Disorders: No - NEUROLOGICAL Hx Neurological Disorder: No Other/Comment: "nerve pain last year - HEENT Hx HEENT Problems: No - RENAL Hx Chronic Kidney Disease: No - ENDOCRINE/METABOLIC Hx Endocrine Disorders: No - HEMATOLOGICAL/ONCOLOGICAL Hx Blood Disorders: No - INTEGUMENTARY Hx Dermatological Problems: No - MUSCULOSKELETAL/RHEUMATOLOGICAL Hx Musculoskeletal Disorders: Yes Hx Falls: Yes Hx Herniated Disk: Yes - GASTROINTESTINAL Hx Gastrointestinal Disorders: No - GENITOURINARY/GYNECOLOGICAL Hx Genitourinary Disorders: No - PSYCHIATRIC Hx Psychophysiologic Disorder: No Hx Substance Use: No - SURGICAL HISTORY Hx Surgeries: No - ANESTHESIA Hx Anesthesia: No Meds Allergies/Adverse Reactions: Allergies Allergy/AdvReac Type Severity Reaction Status Date / Time amoxicillin Allergy SHORTNESS Verified 08/24/17 20:52 OF BREATH - Medications Medications: Current Medications Ketorolac Tromethamine (Toradol) 30 mg IVP Q8H PRN PRN Reason: Pain, severe (8-10) Last Admin: 10/06/18 00:35 Dose: 30 mg Naproxen (Naprosyn Tab) 375 mg PO Q12 PRN PRN Reason: Pain, moderate (4-7) Results - Vital Signs Recent Vital Signs: Last Vital Signs Temp 98.1 F 10/06/18 07:41 Pulse 86 10/06/18 07:41 Resp 20 10/06/18 07:41 BP 124/85 10/06/18 07:41 Pulse Ox 97 10/06/18 07:41 - Labs Result Diagrams: 10/05/18 20:25 10/05/18 20:25 Labs: Laboratory Results - last 24 hr 10/05/18 10/05/18 10/05/18 20:25 20:25 20:25 WBC 5.3 D RBC 3.48 L Hgb 13.3 Hct 39.4 MCV 113.3 H D MCH 38.2 H MCHC 33.7 RDW 17.3 H Plt Count 345 MPV 7.1 L Neut % (Auto) 56.6 Lymph % (Auto) 37.1 Perkins % (Auto) 5.3 Eos % (Auto) 0.1 Baso % (Auto) 0.9 Neut # (Auto) 3.0 Lymph # (Auto) 2.0 Perkins # (Auto) 0.3 Eos # (Auto) 0.0 Baso # (Auto) 0.0 PT 12.3 INR 1.1 APTT 33.6 Sodium 137 Potassium 3.8 Chloride 101 Carbon Dioxide 28 Anion Gap 12 BUN 10 Creatinine 0.5 L Est GFR ( Amer) > 60 Est GFR (Non-Af Amer) > 60 Random Glucose 89 Calcium 8.9 Total Bilirubin 1.0 AST 18 ALT 17 Alkaline Phosphatase 76 Total Protein 7.2 Albumin 4.0 Globulin 3.2 Albumin/Globulin Ratio 1.3 Urine Color Urine Clarity Urine pH Ur Specific Hubbell Urine Protein Urine Glucose (UA) Urine Ketones Urine Blood Urine Nitrate Urine Bilirubin Urine Urobilinogen Ur Leukocyte Esterase Urine RBC (Auto) Urine Microscopic WBC Ur Squamous Epith Cells Urine Bacteria 10/05/18 22:33 WBC RBC Hgb Hct MCV MCH MCHC RDW Plt Count MPV Neut % (Auto) Lymph % (Auto) Perkins % (Auto) Eos % (Auto) Baso % (Auto) Neut # (Auto) Lymph # (Auto) Perkins # (Auto) Eos # (Auto) Baso # (Auto) PT INR APTT Sodium Potassium Chloride Carbon Dioxide Anion Gap BUN Creatinine Est GFR ( Amer) Est GFR (Non-Af Amer) Random Glucose Calcium Total Bilirubin AST ALT Alkaline Phosphatase Total Protein Albumin Globulin Albumin/Globulin Ratio Urine Color Bebe Urine Clarity Cloudy Urine pH 5.0 Ur Specific Hubbell 1.033 H Urine Protein 100 Urine Glucose (UA) Neg Urine Ketones 20 Urine Blood Small Urine Nitrate Negative Urine Bilirubin Moderate Urine Urobilinogen 4.0 H Ur Leukocyte Esterase Mod Urine RBC (Auto) 49 H Urine Microscopic WBC 63 H Ur Squamous Epith Cells 7 H Urine Bacteria Few H
[2018-10-06] MEDS: Acetaminophen-Codeine 300/30 mg Tab PO PRN (21:57)
[2018-10-07] MEDS: Acetaminophen-Codeine 300/30 mg Tab PO PRN (21:30)
[2018-10-08] MEDS: Acetaminophen-Codeine 300/30 mg Tab PO PRN ×2 (08:59→23:29)
--- NOTE | 2018-10-08 10:10 | CP.PCM.HP ---
History of Present Illness - History of Present Illness History of Present Illness: This is a 37 y/o female with known hx of cervcial and lumbar disc disease who presented to ER upon advice of her Neurologist Dr Lindsey due to increasing pain from cervical radiculopathy and associated headaches. She also complained of poor gait and balance for the past few days. She claims to have herniated discs both cervcial and lumbar. She had not taken any medications lately. Present on Admission - Present on Admission Any Indicators Present on Admission: No History of DVT/PE: No History of Uncontrolled Diabetes: No Urinary Catheter: No Decubitus Ulcer Present: No Review of Systems - Musculoskeletal Musculoskeletal: Abnormal Gait - Neurological Neurological: Abnormal Gait, Disequilibrium, Headaches, Radicular Pain, Tingling Past Patient History - Infectious Disease Hx of Infectious Diseases: None - Past Medical History & Family History Past Medical History?: Yes - Past Social History Smoking Status: Never Smoked - CARDIAC Hx Cardiac Disorders: No - PULMONARY Hx Respiratory Disorders: No - NEUROLOGICAL Hx Neurological Disorder: No Other/Comment: "nerve pain last year - HEENT Hx HEENT Problems: No - RENAL Hx Chronic Kidney Disease: No - ENDOCRINE/METABOLIC Hx Endocrine Disorders: No - HEMATOLOGICAL/ONCOLOGICAL Hx Blood Disorders: No - INTEGUMENTARY Hx Dermatological Problems: No - MUSCULOSKELETAL/RHEUMATOLOGICAL Hx Musculoskeletal Disorders: Yes Hx Falls: Yes Hx Herniated Disk: Yes - GASTROINTESTINAL Hx Gastrointestinal Disorders: No - GENITOURINARY/GYNECOLOGICAL Hx Genitourinary Disorders: No - PSYCHIATRIC Hx Psychophysiologic Disorder: No Hx Substance Use: No - SURGICAL HISTORY Hx Surgeries: No - ANESTHESIA Hx Anesthesia: No Meds Allergies/Adverse Reactions: Allergies Allergy/AdvReac Type Severity Reaction Status Date / Time amoxicillin Allergy SHORTNESS Verified 08/24/17 20:52 OF BREATH Physical Exam - Head Exam Head Exam: NORMAL INSPECTION - Eye Exam Eye Exam: Normal appearance - ENT Exam ENT Exam: Mucous Membranes Moist - Respiratory Exam Respiratory Exam: Clear to Auscultation Bilateral - Cardiovascular Exam Cardiovascular Exam: REGULAR RHYTHM - GI/Abdominal Exam GI & Abdominal Exam: Normal Bowel Sounds - Neurological Exam Additional comments: motor function on upper and lower extremities are all normal 5/5 Results - Vital Signs Recent Vital Signs: Last Vital Signs Temp 97.8 F 10/08/18 08:05 Pulse 79 10/08/18 08:05 Resp 18 10/08/18 08:05 BP 104/64 10/08/18 08:05 Pulse Ox 95 10/08/18 08:05 - Labs Result Diagrams: 10/05/18 20:25 10/05/18 20:25 Assessment & Plan (1) Cervical radiculopathy Status: Acute (2) Lumbar radiculopathy Status: Acute (3) Headache Status: Acute (4) Unsteady gait Status: Acute (5) Cervical disc herniation Status: Chronic (6) Spinal stenosis Status: Chronic - Assessment and Plan (Free Text) Plan: Neuro chck Neuro eval Neuro surgical eval phys therapy painmeds gabapentin
--- NOTE | 2018-10-08 10:18 | CP.PCM.PN ---
Subjective - Date & Time of Evaluation Date of Evaluation: 10/07/18 Time of Evaluation: 12:00 - Subjective Subjective: Patient continues to complain ofgait dysfunction and poor balance CT scan showed bulging discs on both C spine and LS spine with impingement at C3C4 and moderate stenosis on L4L5. No definite herniated discs noted. Objective - Vital Signs/Intake and Output Vital Signs (last 24 hours): Temp Pulse Resp BP Pulse Ox 97.8 F 79 18 104/64 95 10/08/18 08:05 10/08/18 08:05 10/08/18 08:05 10/08/18 08:05 10/08/18 08:05 - Medications Medications: Current Medications Acetaminophen/Codeine Phosphate (Tylenol/Codeine 300 Mg/30 Mg) 1 tab PO TID PRN PRN Reason: Pain, severe (8-10) Last Admin: 10/08/18 08:59 Dose: 1 tab Dexamethasone (Decadron) 8 mg PO DAILY [facility] Last Admin: 10/08/18 09:00 Dose: 8 mg Naproxen (Naprosyn Tab) 375 mg PO Q12 PRN PRN Reason: Pain, moderate (4-7) Pantoprazole Sodium (Protonix Inj) 40 mg IVP DAILY [facility] Last Admin: 10/08/18 09:00 Dose: 40 mg - Labs Labs: 10/05/18 20:25 10/05/18 20:25 PT 12.3 Seconds (9.8-13.1) 10/05/18 20:25 INR 1.1 10/05/18 20:25 APTT 33.6 Seconds (25.6-37.1) 10/05/18 20:25 - Head Exam Head Exam: NORMAL INSPECTION - Eye Exam Eye Exam: Normal appearance - ENT Exam ENT Exam: Mucous Membranes Moist - Respiratory Exam Respiratory Exam: Clear to Ausculation Bilateral - Cardiovascular Exam Cardiovascular Exam: REGULAR RHYTHM - GI/Abdominal Exam GI & Abdominal Exam: Normal Bowel Sounds Assessment and Plan (1) Cervical radiculopathy Status: Acute (2) Lumbar radiculopathy Status: Acute (3) Headache Status: Acute (4) Unsteady gait Status: Acute (5) Cervical disc herniation Status: Chronic (6) Spinal stenosis Status: Chronic - Assessment and Plan (Free Text) Plan: Cont meds Cont tx Cont PT neurosurgical eval.
[2018-10-08 10:32] LABS: HEMOGLOBIN 13.7 g/dL (12.0-16.0); MEAN CELL VOLUME 113.9 fl (81.0-99.0); MEAN CORPUSCULAR HGB CONC 33.4 g/dL (33.0-37.0); RBC 3.61 Mil/uL (3.80-5.20); RED CELL DISTRIBUTION WIDTH 17.4 % (11.5-14.5); WHITE BLOOD COUNT 7.1 K/uL (4.8-10.8)
[2018-10-08] MEDS ORDERED: Gadodiamide 287 MG/ML VIAL (15ML) IV ONE (10:35)
[2018-10-08 10:50] LABS: BLOOD UREA NITROGEN 6 mg/dl (7-17); CALCIUM 9.6 mg/dL (8.4-10.2); GFR NON-AFRICAN AMERICAN > 60
--- NOTE | 2018-10-08 15:08 | MRI ---
Date of service: 10/08/2018 PROCEDURE: MR CERVICAL SPINE WITH AND WITHOUT CONTRAST HISTORY: radiculopathy, unsteady gait COMPARISON: Cervical spine CT without contrast 10/05/2018 ([facility]). TECHNIQUE: Multiecho multiplanar sequences were performed through the cervical spine with and without the use of intravenous contrast (Omniscan 15 cc). FINDINGS: Limited reversal of cervical curvature is identified, less than that shown on 10/05/[address] Posterior longitudinal ligament thickening corresponds to prominence abutting the posterior C3, C4 and C6 as well as minimally at C5 vertebral body as demonstrated in ct c-spine 10/05/2018. Craniocervical junction unremarkable. Vertebral body heights preserved. No marrow signal abnormality. Normal cervical cord. No paraspinal abnormality. No abnormal enhancement identified including intrathecal epidural spaces. C2-3: No disc herniation, spinal canal stenosis or neural foraminal narrowing. C3-4: Minimal posterior disc bulge is appreciate with associated small central protrusion encroaching if not impinging ventral nerve roots without causing significant central canal stenosis. No definite neural foraminal stenosis bilaterally. C4-5: A small right paracentral disc protrusion overlies small posterior disc bulge encroaching if not impinging right greater than left ventral nerve roots and indenting the ventral surface of the cervical cord. No cord reaction. No significant stenosis with neural foramina widely patent bilaterally. C5-C6: An additional small right paracentral disc protrusion overlies minimal posterior disc bulge encroaching if not impinging ventral right greater than left nerve roots and indenting the ventral cord cord surface without reaction. No significant central canal stenosis. Neural foramina widely patent. C6-C7: No disc herniation, spinal canal stenosis or neuroforaminal narrowing. C7-T1: No disc herniation, spinal canal stenosis or neural foraminal narrowing. OTHER FINDINGS: None. IMPRESSION: Multilevel posterior disc protrusions are identified central at the C3-4 level and right paracentral at the C4-5 and C5-6 levels encroaching if not impinging ventral nerve roots. Ventral cervical cord is indented at C4-5 and C5-6 without reaction. Mild prominence of the posterior longitudinal ligament is less well appreciated on MR than prior CT 10/05/2018 at C3, C4, C5 and C6. Conversely, aforementioned disc protrusions are clearly better identified on MRI than prior CT. No abnormal intrathecal or epidural contrast enhancement. No abnormal bony enhancement. Straightened curvature without fracture or spondylolisthesis. Note, thyromegaly previously demonstrated in prior CT 10/05/2018 is not as well seen in the current MR exam in part due to technical signal dephasing as part of cervical spine MRI protocol. Follow-up thyroid ultrasonography remains recommended as previously advised.
--- NOTE | 2018-10-08 15:15 | MRI ---
Date of service: 10/08/2018 PROCEDURE: MR LUMBAR SPINE WITH AND WITHOUT CONTRAST HISTORY: radiculopathy, unsteady gait COMPARISON: None available. TECHNIQUE: Multiecho multiplanar sequences were performed through the lumbar spine with and without the use of intravenous contrast (dosing for intravenous gadolinium is documented in separate cervical spine MRI with and without contrast also performed 10/08/2018). FINDINGS: Normal lumbar lordosis. Vertebral body heights are preserved. Marrow signal unremarkable. Conus medullaris unremarkable at the level of L2 Paraspinal soft tissues are unremarkable. No abnormal intrathecal or epidural enhancement. Incidentally, a small cyst is noted at the medial upper pole left kidney. T12-L1: No disc herniation, spinal canal stenosis or neural foraminal narrowing. L1-2: No disc herniation, spinal canal stenosis or neural foraminal narrowing. L2-3: Limited posterior disc bulge is identified flattening the ventral thecal sac and combines with moderate facet joint degenerative change causing a mild central canal stenosis concentrated at the bilateral lateral recesses symmetrically. No significant neural foraminal stenosis bilaterally. L3-4: Limited posterior disc bulge is identified flattening the ventral thecal sac, slightly greater at the left and right sides. Moderate facet joint degenerative changes accompany with both findings causing a mild central canal stenosis slightly greater the left and right sides. Borderline left neural foraminal stenosis. None is seen at the right. L4-5: A generalized posterior disc bulge combines with relatively prominent facet joint degenerative arthropathy causing [id number] central canal stenosis and borderline bilateral neural foraminal stenoses. No disc herniation identified. L5-S1: No disc herniation, spinal canal stenosis or neural foraminal narrowing. Moderate bilateral facet joint degenerative changes are identified symmetrically. OTHER FINDINGS: None. IMPRESSION: Multilevel degenerative central canal stenoses are identified from L2-3 to L4-5, seen worst at L4-5 ([id number] severity) due to posterior disc bulging combining with facet joint degenerative change. No definitive disc herniation appreciable or severe stenosis. No abnormal intrathecal or epidural enhancement demonstrated throughout the lumbar spine.
--- NOTE | 2018-10-08 15:40 | CP.PCM.CON ---
History of Present Illness - History of Present Illness History of Present Illness: Neurosurgical consult: Dr. Villarreal Patient is a 37 y/o female c/o neck pain and UE/LE weakness. She has had chronic symptoms over the past year without any instance of injury or trauma. 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 She has been seen by multiple hospitals and specialists in the past without resolution of her symptoms until April 2018. At that time, she had been rehabilitating at an acute rehab center with gradual improvement. She had progressed to ambulating with a cane. Two weeks ago, her symptoms worsened and reverted back to severe widespread weakness. She was seen by her neurologist who recommended hospitalization. Currently, she c/o of moderate pain from her head radiating to her left neck. She denies any numbness/tingling. She denies any CP/SOB/N/V/D/fever/dysuria/melena. PMH: denies PSH: denies meds: as per med rec allergy: amoxicillin (rash) SH: ETOH occasionally, denies tobacco/drug use Review of Systems - Review of Systems All systems: reviewed and no additional remarkable complaints except Review of Systems: as per HPI Past Patient History - Infectious Disease Hx of Infectious Diseases: None - Past Medical History & Family History Past Medical History?: Yes Past Family History: Reviewed and not pertinent - Past Social History Smoking Status: Never Smoked - CARDIAC Hx Cardiac Disorders: No - PULMONARY Hx Respiratory Disorders: No - NEUROLOGICAL Hx Neurological Disorder: No Other/Comment: "nerve pain last year - HEENT Hx HEENT Problems: No - RENAL Hx Chronic Kidney Disease: No - ENDOCRINE/METABOLIC Hx Endocrine Disorders: No - HEMATOLOGICAL/ONCOLOGICAL Hx Blood Disorders: No - INTEGUMENTARY Hx Dermatological Problems: No - MUSCULOSKELETAL/RHEUMATOLOGICAL Hx Musculoskeletal Disorders: Yes Hx Falls: Yes Hx Herniated Disk: Yes - GASTROINTESTINAL Hx Gastrointestinal Disorders: No - GENITOURINARY/GYNECOLOGICAL Hx Genitourinary Disorders: No - PSYCHIATRIC Hx Psychophysiologic Disorder: No Hx Substance Use: No - SURGICAL HISTORY Hx Surgeries: No - ANESTHESIA Hx Anesthesia: No Meds Allergies/Adverse Reactions: Allergies Allergy/AdvReac Type Severity Reaction Status Date / Time amoxicillin Allergy SHORTNESS Verified 08/24/17 20:52 OF BREATH - Medications Medications: Current Medications Acetaminophen/Codeine Phosphate (Tylenol/Codeine 300 Mg/30 Mg) 1 tab PO TID PRN PRN Reason: Pain, severe (8-10) Last Admin: 10/08/18 08:59 Dose: 1 tab Dexamethasone (Decadron) 8 mg PO DAILY COUNTS INCLUDE 234 BEDS AT THE [facility] Last Admin: 10/08/18 09:00 Dose: 8 mg Naproxen (Naprosyn Tab) 375 mg PO Q12 PRN PRN Reason: Pain, moderate (4-7) Pantoprazole Sodium (Protonix Inj) 40 mg IVP DAILY COUNTS INCLUDE 234 BEDS AT THE [facility] Last Admin: 10/08/18 09:00 Dose: 40 mg Physical Exam - Constitutional Appears: Well, No Acute Distress - Head Exam Head Exam: ATRAUMATIC - Eye Exam Eye Exam: EOMI, Normal appearance - ENT Exam ENT Exam: Mucous Membranes Moist - Neck Exam Additional comments: no lesions/masses/erythema no midline tenderness mild left paraspinal tenderness neg clonus - Respiratory Exam Respiratory Exam: NORMAL BREATHING PATTERN - Neurological Exam Neurological exam: Alert, CN II-XII Intact, Oriented x3 Additional comments: 4/5 symmetric strength UE/LE - Psychiatric Exam Psychiatric exam: Normal Affect, Normal Mood - Skin Skin Exam: Normal Color, Warm Results - Vital Signs Recent Vital Signs: Last Vital Signs Temp 97.8 F 10/08/18 08:05 Pulse 79 10/08/18 08:05 Resp 18 10/08/18 08:05 BP 104/64 10/08/18 08:05 Pulse Ox 95 10/08/18 08:05 - Labs Result Diagrams: 10/08/18 10:15 10/08/18 10:15 Labs: Laboratory Results - last 24 hr 10/08/18 10/08/18 10:15 10:15 WBC 7.1 RBC 3.61 L Hgb 13.7 Hct 41.1 MCV 113.9 H MCH 38.0 H MCHC 33.4 RDW 17.4 H Plt Count 390 Sodium 137 Potassium 3.6 Chloride 99 Carbon Dioxide 30 Anion Gap 12 BUN 6 L Creatinine 0.5 L Est GFR ( Amer) > 60 Est GFR (Non-Af Amer) > 60 Random Glucose 80 Calcium 9.6 - Impressions Impression: Accession No. : [id number] Patient Name / ID : MUNIR KAUFMAN / [id number] Exam Date : 10/08/2018 12:18:16 ( Approved ) Study Comment : Sex / Age : F / 37Y Creator : Florencio Ramos MD Dictator : Florencio Ramos MD Metal Bonder : Mails Supervisor : Florencio Ramos MD Approver2 : Report Date : 10/08/2018 15:02:47 My Comment : Date of service: 10/08/2018 PROCEDURE: MR CERVICAL SPINE WITH AND WITHOUT CONTRAST HISTORY: radiculopathy, unsteady gait COMPARISON: Cervical spine CT without contrast 10/05/2018 ([facility]). TECHNIQUE: Multiecho multiplanar sequences were performed through the cervical spine with and without the use of intravenous contrast (Omniscan 15 cc). FINDINGS: Limited reversal of cervical curvature is identified, less than that shown on 10/05/[address]. Posterior longitudinal ligament thickening corresponds to prominence abutting the posterior C3, C4 and C6 as well as minimally at C5 vertebral body as demonstrated in ct c-spine 10/05/2018. Craniocervical junction unremarkable. Vertebral body heights preserved. No marrow signal abnormality. Normal cervical cord. No paraspinal abnormality. No abnormal enhancement identified including intrathecal epidural spaces. C2-3: No disc herniation, spinal canal stenosis or neural foraminal narrowing. C3-4: Minimal posterior disc bulge is appreciate with associated small central protrusion encroaching if not impinging ventral nerve roots without causing significant central canal stenosis. No definite neural foraminal stenosis bilaterally. C4-5: A small right paracentral disc protrusion overlies small posterior disc bulge encroaching if not impinging right greater than left ventral nerve roots and indenting the ventral surface of the cervical cord. No cord reaction. No significant stenosis with neural foramina widely patent bilaterally. C5-C6: An additional small right paracentral disc protrusion overlies minimal posterior disc bulge encroaching if not impinging ventral right greater than left nerve roots and indenting the ventral cord cord surface without reaction. No significant central canal stenosis. Neural foramina widely patent. C6-C7: No disc herniation, spinal canal stenosis or neuroforaminal narrowing. C7-T1: No disc herniation, spinal canal stenosis or neural foraminal narrowing. OTHER FINDINGS: None. IMPRESSION: Multilevel posterior disc protrusions are identified central at the C3-4 level and right paracentral at the C4-5 and C5-6 levels encroaching if not impinging ventral nerve roots. Ventral cervical cord is indented at C4-5 and C5-6 without reaction. Mild prominence of the posterior longitudinal ligament is less well appreciated on MR than prior CT 10/05/2018 at C3, C4, C5 and C6. Conversely, aforementioned disc protrusions are clearly better identified on MRI than prior CT. No abnormal intrathecal or epidural contrast enhancement. No abnormal bony enhancement. Straightened curvature without fracture or spondylolisthesis. Note, thyromegaly previously demonstrated in prior CT 10/05/2018 is not as well seen in the current MR exam in part due to technical signal dephasing as part of cervical spine MRI protocol. Follow-up thyroid ultrasonography remains recommended as previously advised. Accession No. : [id number] Patient Name / ID : MUNIR KAUFMAN / [id number] Exam Date : 10/08/2018 12:55:54 ( Approved ) Study Comment : Sex / Age : F / 37Y Creator : Florencio Ramos MD Dictator : Florencio Ramos MD Metal Bonder : Mails Supervisor : Florencio Ramos MD Approver2 : Report Date : 10/08/2018 15:10:21 My Comment : Date of service: 10/08/2018 PROCEDURE: MR LUMBAR SPINE WITH AND WITHOUT CONTRAST HISTORY: radiculopathy, unsteady gait COMPARISON: None available. TECHNIQUE: Multiecho multiplanar sequences were performed through the lumbar spine with and without the use of intravenous contrast (dosing for intravenous gadolinium is documented in separate cervical spine MRI with and without contrast also performed 10/08/2018). FINDINGS: Normal lumbar lordosis. Vertebral body heights are preserved. Marrow signal unremarkable. Conus medullaris unremarkable at the level of L2 Paraspinal soft tissues are unremarkable. No abnormal intrathecal or epidural enhancement. Incidentally, a small cyst is noted at the medial upper pole left kidney. T12-L1: No disc herniation, spinal canal stenosis or neural foraminal narrowing. L1-2: No disc herniation, spinal canal stenosis or neural foraminal narrowing. L2-3: Limited posterior disc bulge is identified flattening the ventral thecal sac and combines with moderate facet joint degenerative change causing a mild central canal stenosis concentrated at the bilateral lateral recesses symmetrically. No significant neural foraminal stenosis bilaterally. L3-4: Limited posterior disc bulge is identified flattening the ventral thecal sac, slightly greater at the left and right sides. Moderate facet joint degenerative changes accompany with both findings causing a mild central canal stenosis slightly greater the left and right sides. Borderline left neural foraminal stenosis. None is seen at the right. L4-5: A generalized posterior disc bulge combines with relatively prominent facet joint degenerative arthropathy causing [id number]-kjjyuvui central canal stenosis and borderline bilateral neural foraminal stenoses. No disc herniation identified. L5-S1: No disc herniation, spinal canal stenosis or neural foraminal narrowing. Moderate bilateral facet joint degenerative changes are identified symmetrically. OTHER FINDINGS: None. IMPRESSION: Multilevel degenerative central canal stenoses are identified from L2-3 to L4-5, seen worst at L4-5 ([id number] severity) due to posterior disc bulging combining with facet joint degenerative change. No definitive disc herniation appreciable or severe stenosis. No abnormal intrathecal or epidural enhancement demonstrated throughout the lumbar spine. Assessment & Plan (1) Weakness of both upper extremities Assessment and Plan: MRI of cervical spine unremarkable for any acute changes -Recommend conservative management for now -No acute neurosurgical intervention at this time -Anti-inflammatory -PT/OT d/w Dr. Villarreal who agrees with above Status: Acute (2) Weakness of both lower extremities Status: Acute - Date & Time Date: 10/08/18 Time: 14:00
--- NOTE | 2018-10-09 07:14 | CP.PCM.PN ---
Subjective - Date & Time of Evaluation Date of Evaluation: 10/08/18 Time of Evaluation: 13:00 - Subjective Subjective: Patient remains stable Still with sx of back pain and radiculopathy. Objective - Vital Signs/Intake and Output Vital Signs (last 24 hours): Temp Pulse Resp BP Pulse Ox 97.6 F 74 18 115/76 98 10/09/18 00:59 10/09/18 00:59 10/09/18 00:59 10/09/18 00:59 10/09/18 00:59 - Medications Medications: Current Medications Acetaminophen/Codeine Phosphate (Tylenol/Codeine 300 Mg/30 Mg) 1 tab PO TID PRN PRN Reason: Pain, severe (8-10) Last Admin: 10/08/18 23:29 Dose: 1 tab Dexamethasone (Decadron) 8 mg PO DAILY [facility] Last Admin: 10/08/18 09:00 Dose: 8 mg Naproxen (Naprosyn Tab) 375 mg PO Q12 PRN PRN Reason: Pain, moderate (4-7) Pantoprazole Sodium (Protonix Inj) 40 mg IVP DAILY [facility] Last Admin: 10/08/18 09:00 Dose: 40 mg - Labs Labs: 10/08/18 10:15 10/08/18 10:15 PT 12.3 Seconds (9.8-13.1) 10/05/18 20:25 INR 1.1 10/05/18 20:25 APTT 33.6 Seconds (25.6-37.1) 10/05/18 20:25 Assessment and Plan (1) Cervical radiculopathy Status: Acute (2) Lumbar radiculopathy Status: Acute (3) Headache Status: Acute (4) Unsteady gait Status: Acute (5) Cervical disc herniation Status: Chronic (6) Spinal stenosis Status: Chronic
--- NOTE | 2018-10-09 10:31 | CP.PCM.PN ---
Subjective - Date & Time of Evaluation Date of Evaluation: 10/09/18 Time of Evaluation: 10:28 - Subjective Subjective: Patient seen and examined OOB to chair comfortable. Symptoms are unchanged since yesterday. Difficulties with ambulating and gripping objects. No other complaints. Objective - Vital Signs/Intake and Output Vital Signs (last 24 hours): Temp Pulse Resp BP Pulse Ox 97.6 F 83 19 118/83 98 10/09/18 07:55 10/09/18 07:55 10/09/18 07:55 10/09/18 07:55 10/09/18 07:55 - Medications Medications: Current Medications Acetaminophen/Codeine Phosphate (Tylenol/Codeine 300 Mg/30 Mg) 1 tab PO TID PRN PRN Reason: Pain, severe (8-10) Last Admin: 10/08/18 23:29 Dose: 1 tab Dexamethasone (Decadron) 8 mg PO DAILY [facility] Last Admin: 10/09/18 09:23 Dose: 8 mg Naproxen (Naprosyn Tab) 375 mg PO Q12 PRN PRN Reason: Pain, moderate (4-7) Pantoprazole Sodium (Protonix Ec Tab) 40 mg PO DAILY [facility] - Labs Labs: 10/08/18 10:15 10/08/18 10:15 PT 12.3 Seconds (9.8-13.1) 10/05/18 20:25 INR 1.1 10/05/18 20:25 APTT 33.6 Seconds (25.6-37.1) 10/05/18 20:25 - Neck Exam Additional comments: no lesions/masses/erythema no midline tenderness mild left paraspinal tenderness neg clonus - Neurological Exam Neurological Exam: Alert, Awake, CN II-XII Intact, Oriented x3 Neuro motor strength exam: Left Upper Extremity: 4, Right Upper Extremity: 4, Left Lower Extremity: 4, Right Lower Extremity: 4 Assessment and Plan (1) Weakness of both upper extremities Status: Acute (2) Weakness of both lower extremities Status: Acute (3) Cervical paraspinal muscle spasm Assessment & Plan: -Dr. Villarreal recommends to continue with conservative management. No surgical indication -Muscle relaxants, anti-inflammatories as needed -consider pain management consult -PT/OT -neurosurgically stable -consult appreciated -please reconsult as needed -D/w Dr. Villarreal who agrees with above Status: Acute
--- NOTE | 2018-10-09 10:58 | CP.PCM.PN ---
Subjective - Date & Time of Evaluation Date of Evaluation: 10/09/18 Time of Evaluation: 10:56 - Subjective Subjective: Neuro Follow-Up Note: Ms. Armenta was evaluated this afternoon at bedside. She is still complaining of weakness to her arms and legs. Pt verbalizes feeling very frustrated with her current situation and fears not being functional again. She is pending TCU. Currently denies h/a, dizziness, visual changes, chest pain, sob, abd pain, paresthesias, chills. Objective - Vital Signs/Intake and Output Vital Signs (last 24 hours): Temp Pulse Resp BP Pulse Ox 97.6 F 97 H 19 118/83 99 10/09/18 07:55 10/09/18 10:20 10/09/18 07:55 10/09/18 07:55 10/09/18 10:20 - Medications Medications: Current Medications Acetaminophen/Codeine Phosphate (Tylenol/Codeine 300 Mg/30 Mg) 1 tab PO TID PRN PRN Reason: Pain, severe (8-10) Last Admin: 10/08/18 23:29 Dose: 1 tab Dexamethasone (Decadron) 8 mg PO DAILY [facility] Last Admin: 10/09/18 09:23 Dose: 8 mg Naproxen (Naprosyn Tab) 375 mg PO Q12 PRN PRN Reason: Pain, moderate (4-7) Pantoprazole Sodium (Protonix Ec Tab) 40 mg PO DAILY [facility] Tizanidine HCl (Zanaflex) 2 mg PO Q8 PRN PRN Reason: Muscle spasm - Labs Labs: 10/08/18 10:15 10/08/18 10:15 PT 12.3 Seconds (9.8-13.1) 10/05/18 20:25 INR 1.1 10/05/18 20:25 APTT 33.6 Seconds (25.6-37.1) 10/05/18 20:25 - Constitutional Appears: Well, Non-toxic, No Acute Distress - Head Exam Head Exam: ATRAUMATIC, NORMAL INSPECTION, NORMOCEPHALIC - Eye Exam Eye Exam: EOMI, Normal appearance, PERRL Pupil Exam: NORMAL ACCOMODATION, PERRL - ENT Exam ENT Exam: Mucous Membranes Moist - Neck Exam Neck Exam: Full ROM, Normal Inspection - Respiratory Exam Respiratory Exam: NORMAL BREATHING PATTERN - Extremities Exam Extremities Exam: Normal Inspection. absent: Calf Tenderness, Pedal Edema Additional comments: Able to move all extremities; does have weakness to BUE and BLE, weakness is more pronounced to the LUE and LLE compared to the right side. - Back Exam Back Exam: paraspinal tenderness (cervical) - Neurological Exam Neurological Exam: Alert, Awake, CN II-XII Intact, Oriented x3 Neuro motor strength exam: Left Upper Extremity: 3 (distal 3/5), Right Upper Extremity: 4 (distal 4/5), Left Lower Extremity: 3 (distal 3/5), Right Lower Extremity: 4 (distal 4/5) Additional comments: Able to move all extremities; does have weakness to BUE and BLE, weakness is more pronounced to the LUE and LLE compared to the right side. No sensory deficits. No tremors. - Psychiatric Exam Psychiatric exam: Normal Affect, Normal Mood - Skin Skin Exam: Normal Color Assessment and Plan (1) Weakness of both upper extremities Assessment & Plan: Imaging reviewed: -C-Spine MRI with and without (10/08/28): Multilevel posterior disc protrusions are identified central at the C3-4 level and right paracentral at the C4-5 and C5-6 levels encroaching if not impinging ventral nerve roots. Ventral cervical cord is indented at C4-5 and C5-6 without reaction. Mild prominence of the posterior longitudinal ligament is less well appreciated on MR than prior CT 10/05/2018 at C3, C4, C5 and C6. Conversely, aforementioned disc protrusions are clearly better identified on MRI than prior CT. No abnormal intrathecal or epidural contrast enhancement. No abnormal bony enhancement. Straightened curvature without fracture or spondylolisthesis. Note, thyromegaly previously demonstrated in prior CT 10/05/2018 is not as well seen in the current MR exam in part due to technical signal dephasing as part of cervical spine MRI protocol. Follow-up thyroid ultrasonography remains recommended as previously a dvised. -Neurosurgery on the case and does not recommend surgical intervention at this time. -Continue conservative treatment; NSAIDS and muscle relaxers prn. -Continue PT/OT. Status: Acute (2) Weakness of both lower extremities Assessment & Plan: Imaging reviewed: -L-SPine MRI (10/08/18): Multilevel degenerative central canal stenoses are identified from L2-3 to L4-5, seen worst at L4-5 (zskt-wa-fymzmsxg severity) due to posterior disc bulging combining with facet joint degenerative change. No definitive disc herniation appreciable or severe stenosis. No abnormal intrathecal or epidural enhancement demonstrated throughout the lumbar spine. -Neurosurgery on the case and do not recommend surgical intervention at this time. -Continue conservative treatment; NSAIDS and muscle relaxers prn. -Continue PT/OT. -No further neurological recommendations at this time. Reconsult prn. Pt can f/u with neuro in the office within 1 month after d/c from TCU. F/u with neurosurgery in the office as directed by them. Thank you for this consultation. Natividad Cervantes, TAL, CLIN ASST d/w Dr. Freedman Status: Acute
[2018-10-09] MEDS: Pantoprazole 40 mg EC Tab PO SCH (10:59)
[2018-10-09] MEDS: Acetaminophen-Codeine 300/30 mg Tab PO PRN (22:46)
[2018-10-10 01:05] VITALS: RESP 19
[2018-10-10 08:14] VITALS: BP 131/86; PULSE 89; TEMP 97.5; O2SAT 95
[2018-10-10] MEDS: Acetaminophen-Codeine 300/30 mg Tab PO PRN (09:24)
[2018-10-10] MEDS: Pantoprazole 40 mg EC Tab PO SCH (09:25)
--- NOTE | 2018-10-10 18:44 | CP.PCM.DIS ---
Provider - Provider Date of Admission: 10/05/18 22:00 Attending physician: Saad Arellano MD Consults: 10/05/18 22:01 Neurology Consult Stat Comment: NO NEED TO CALL TONIGHT, ALREADY SPOKE TO HER Consulting Provider: Keyla Lindsey Consulting Physician: Keyla Lindsey Reason for Consult: GODINEZ, unsteady gait 10/08/18 10:33 Neuro Surgery Consult Routine Comment: Consulting Provider: Praveen Villarreal Consulting Physician: Praveen Villarreal Reason for Consult: cervical radiculopathy Time Spent in preparation of Discharge (in minutes): 30 Hospital Course - Lab Results Lab Results: Most Recent Lab Values WBC 7.1 K/uL (4.8-10.8) 10/08/18 10:15 RBC 3.61 Mil/uL (3.80-5.20) L 10/08/18 10:15 Hgb 13.7 g/dL (12.0-16.0) 10/08/18 10:15 Hct 41.1 % (34.0-47.0) 10/08/18 10:15 MCV 113.9 fl (81.0-99.0) H 10/08/18 10:15 MCH 38.0 pg (27.0-31.0) H 10/08/18 10:15 MCHC 33.4 g/dL (33.0-37.0) 10/08/18 10:15 RDW 17.4 % (11.5-14.5) H 10/08/18 10:15 Plt Count 390 K/uL (130-400) 10/08/18 10:15 MPV 7.1 fl (7.2-11.7) L 10/05/18 20:25 Neut % (Auto) 56.6 % (50.0-75.0) 10/05/18 20:25 Lymph % (Auto) 37.1 % (20.0-40.0) 10/05/18 20:25 [place] % (Auto) 5.3 % (0.0-10.0) 10/05/18 20:25 Eos % (Auto) 0.1 % (0.0-4.0) 10/05/18 20:25 Baso % (Auto) 0.9 % (0.0-2.0) 10/05/18 20:25 Neut # (Auto) 3.0 K/uL (1.8-7.0) 10/05/18 20:25 Lymph # (Auto) 2.0 K/uL (1.0-4.3) 10/05/18 20:25 [place] # (Auto) 0.3 K/uL (0.0-0.8) 10/05/18 20:25 Eos # (Auto) 0.0 K/uL (0.0-0.7) 10/05/18 20:25 Baso # (Auto) 0.0 K/uL (0.0-0.2) 10/05/18 20:25 PT 12.3 Seconds (9.8-13.1) 10/05/18 20:25 INR 1.1 10/05/18 20:25 APTT 33.6 Seconds (25.6-37.1) 10/05/18 20:25 Sodium 137 mmol/l (132-148) 10/08/18 10:15 Potassium 3.6 MMOL/L (3.6-5.0) 10/08/18 10:15 Chloride 99 mmol/L (98-107) 10/08/18 10:15 Carbon Dioxide 30 mmol/L (22-30) 10/08/18 10:15 Anion Gap 12 (10-20) 10/08/18 10:15 BUN 6 mg/dl (7-17) L 10/08/18 10:15 Creatinine 0.5 mg/dl (0.7-1.2) L 10/08/18 10:15 Est GFR ( Amer) > 60 10/08/18 10:15 Est GFR (Non-Af Amer) > 60 10/08/18 10:15 Random Glucose 80 mg/dL (65-105) 10/08/18 10:15 Calcium 9.6 mg/dL (8.4-10.2) 10/08/18 10:15 Total Bilirubin 1.0 mg/dl (0.2-1.3) 10/05/18 20:25 AST 18 U/L (14-36) 10/05/18 20:25 ALT 17 U/L (9-52) 10/05/18 20:25 Alkaline Phosphatase 76 U/L (38-126) 10/05/18 20:25 Total Protein 7.2 G/DL (6.3-8.2) 10/05/18 20: Albumin 4.0 g/dL (3.5-5.0) 10/05/18 20: Globulin 3.2 gm/dL (2.2-3.9) 10/05/18 20: Albumin/Globulin Ratio 1.3 (1.0-2.1) 10/05/18 20:25 Urine Color [place] (YELLOW) 10/05/18: Urine Clarity Cloudy (Clear) 10/05/18: Urine pH 5.0 (5.0-8.0) 10/05/18: Ur Specific [place] 1.033 (1.003-1.030) H 10/05/18: Urine Protein 100 mg/dL (NEGATIVE) 10/05/18: Urine Glucose (UA) Neg mg/dL (NEGATIVE) 10/05/18: Urine Ketones 20 mg/dL (NEGATIVE) 10/05/18: Urine Blood Small (NEGATIVE) 10/05/18: Urine Nitrate Negative (NEGATIVE) 10/05/18: Urine Bilirubin Moderate (NEGATIVE) 10/05/18: Urine Urobilinogen 4.0 mg/dL (0.2-1.0) H 10/05/18:33 Ur Leukocyte Esterase Mod Radha/uL (Negative) 10/05/18:33 Urine RBC (Auto) 49 /hpf (0-3) H 10/05/18 22:33 Urine Microscopic WBC 63 /hpf (0-5) H 10/05/18 22:33 Ur Squamous Epith Cells 7 /hpf (0-5) H 10/05/18 22:33 Urine Bacteria Few (<OCC) H 10/05/18 22:33 Discharge Exam - Head Exam Head Exam: ATRAUMATIC, NORMAL INSPECTION, NORMOCEPHALIC Discharge Plan - Follow Up Plan Condition: STABLE Disposition: REHAB FACILITY/REHAB UNIT Instructions: Radiculopathy (DC), Headache, Adult (DC) Additional Instructions: follow up with primary MD 1 week Referrals: Praveen Villarreal MD [Staff Provider] - Keyla Lindsey MD [Medical Doctor] -
--- NOTE | 2018-10-10 22:39 | CP.PCM.PN ---
Subjective - Date & Time of Evaluation Date of Evaluation: 10/09/18 Time of Evaluation: 11:00 - Subjective Subjective: Pt seen and assessed at bedside. Explained to pt that from a medical standpoint, no surgical intervention is necessary at this time, and the pt will benefit from outpatient physical therapy. Pt insists that she still does not feel well and needs additional rehab. Discussed plan of care with neurosurgery staff. For possible TCU. Review of Systems: Reviewed and no additional remarkable complaints except occasional neck pain, upper and lower extremity paresthesias, lower back pain. Objective Appears: Non-toxic, No Acute Distress. Head Exam: Normocephalic. Eye Exam: Normal eye inspection, EOMI, PERRLA. Respiratory Exam: NORMAL BREATHING PATTERN, breath sounds clear. Cardiovascular Exam: +S1, +S2. RRR. GI & Abdominal Exam: Round, soft, non-tender. Neurological Exam: Alert, Awake, Oriented x3. Psychiatric exam: Agitated and minimally cooperative. Skin exam: Warm and dry. Assessment/Impression/Plan: 1.) Unsteady gait, neck pain, lumbar spine pain -neurology and neurosurgery consult input appreciated. -As per neurology and neurosurgery, no additional interventions (including surgery) are indicated at this time. -Continue physical therapy. -For possible TCU. Objective - Vital Signs/Intake and Output Vital Signs (last 24 hours): Temp Pulse Resp BP Pulse Ox 97.5 F L 89 19 131/86 95 10/10/18 08:14 10/10/18 08:14 10/10/18 08:14 10/10/18 08:14 10/10/18 08:14 - Labs Labs: 10/08/18 10:15 10/08/18 10:15 PT 12.3 Seconds (9.8-13.1) 10/05/18 20:25 INR 1.1 10/05/18 20:25 APTT 33.6 Seconds (25.6-37.1) 10/05/18 20:25
== END 2018-10-10 13:30 | DRG 243 ==
LOC: H.ER 18:42 → H.ERHOLD 22:00 → H.MEDSURG1 22:49
PROVIDERS: ADMIT Family Medicine; ATTEND Family Medicine
DX: M50.122 Cervical disc disorder at C5-C6 level with radiculopathy (principal); M48.061 Spinal stenosis, lumbar region without neurogenic claudication; M25.78 Osteophyte, vertebrae; R26.81 Unsteadiness on feet; R51 Headache; Z88.0 Allergy status to penicillin